=== PATIENT | male | born 1940 | race Caucasian/White ===

== ENCOUNTER 2020-04-04 13:20 | Observation (INO) | payer MEDICARE, OTHER ==
--- NOTE | 2020-04-04 13:41 | EDM.PDOC ---
ED HPI GENERAL MEDICAL PROBLEM - General Stated Complaint: FELL, SEVERE PAIN UNDER RIBS, TROUBLE BREATHING Time Seen by Provider: 04/04/20 13:25 Source of Information: Reports: Patient History Limitations: Reports: No Limitations - History of Present Illness INITIAL COMMENTS - FREE TEXT/NARRATIVE: This 79 yo male patient reports to the ED with left rib pain and left upper abdominal pain. The patient reports he missed a step in his home today causing him to fall onto his left side. The patient denies any loss of consciousness before, during or after the fall. The patient reports he did loose his breath during the incident. The patient reports increased pain with any movement. The patient reports the area of pain is in the left lower ribs, but worse in his left upper abdomen. Onset: Today Duration: Hour(s):, Constant Location: Reports: Chest, Abdomen Quality: Reports: Ache, Sharp, Stabbing Severity: Moderate Improves with: Reports: None Worsens with: Reports: None Context: Reports: Other Associated Symptoms: Reports: No Other Symptoms Left Anterior Chest Pain Score (Numeric/FACES): 9 - Related Data Allergies Allergy/AdvReac Type Severity Reaction Status Date / Time No Known Allergies Allergy Verified 04/04/20 13:42 Home Meds: Home Meds Aspirin 325 mg PO DAILY 04/04/20 [History] Labetalol HCl [Labetalol] 150 mg PO BID 04/04/20 [History] Losartan [Cozaar] 100 mg PO DAILY 04/04/20 [History] NIFEdipine [Nifedipine ER] 60 mg PO DAILY 04/04/20 [History] Omeprazole 20 mg PO DAILY 04/04/20 [History] Tamsulosin HCl 0.4 mg PO DAILY 04/04/20 [History] Review of Systems - Review of Systems Review Of Systems: Comprehensive ROS is negative, except as noted in HPI. ED EXAM, GENERAL - Physical Exam Exam: See Below Exam Limited By: No Limitations General Appearance: Alert, WD/WN, Moderate Distress Eye Exam: Bilateral Eye: EOMI, Normal Inspection, PERRL Ears: Normal External Exam, Normal Canal, Hearing Grossly Normal, Normal TMs Nose: Normal Inspection, Normal Mucosa, No Blood Throat/Mouth: Normal Inspection, Normal Lips, Normal Teeth, Normal Gums, Normal Oropharynx, Normal Voice, No Airway Compromise Head: Atraumatic, Normocephalic Neck: Normal Inspection, Supple, Non-Tender, Full Range of Motion Respiratory/Chest: No Respiratory Distress, No Accessory Muscle Use, Decreased Breath Sounds, Other (left lower chest wall tenderness) Cardiovascular: Normal Peripheral Pulses, Regular Rate, Rhythm, No Edema, No Gallop, No JVD, No Murmur, No Rub GI/Abdominal: Normal Bowel Sounds, No Organomegaly, No Distention, No Abnormal Bruit, No Mass, Pelvis Stable, Tender (left upper abdominal tenderness to palpation) (Male) Exam: Deferred Rectal (Males) Exam: Deferred Back Exam: Normal Inspection, Full Range of Motion, NT Extremities: Normal Inspection, Non-Tender, No Pedal Edema, Normal Capillary Refill, Limited Range of Motion (due to left rib, and left upper abdominal pain) Neurological: Alert, Oriented, CN II-XII Intact, Normal Cognition, Normal Gait, Normal Reflexes, No Motor/Sensory Deficits Psychiatric: Normal Affect, Normal Mood Skin Exam: Warm, Dry, Intact, Normal Color, No Rash Lymphatic: No Adenopathy Course - Vital Signs Last Recorded V/S: Last Vital Signs Temp 36.6 C 04/04/20 13:39 Pulse 94 04/04/20 13:39 Resp 16 04/04/20 13:39 BP 160/92 H 04/04/20 13:39 Pulse Ox 95 04/04/20 13:39 - Orders/Labs/Meds Orders: Active Orders 24 hr Category Date Time Status CORONAVIRUS COVID-19 CAT [[facility]] Urgent Lab 04/04/20 15:27 Ordered Labs: Laboratory Tests 04/04/20 04/04/20 Range/Units 13:41 13:41 WBC 15.1 H (5.0-10.0) 10^3/uL RBC 5.11 (4.6-6.2) 10^6/uL Hgb 15.4 (14.0-18.0) g/dL Hct 45.1 (40.0-54.0) % MCV 88.3 (80-100) fL MCH 30.1 (27.0-34.0) pg MCHC 34.1 (33.0-35.0) g/dL Plt Count 198 (150-450) 10^3/uL Neut % (Auto) 82.0 H (42.2-75.2) % Lymph % (Auto) 10.1 L (20.5-50.1) % [place] % (Auto) 6.9 (2-8) % Eos % (Auto) 0.9 L (1.0-3.0) % Baso % (Auto) 0.1 (0.0-1.0) % Sodium 133 L (136-145) mmol/L Potassium 4.5 (3.5-5.1) mmol/L Chloride 98 (98-107) mmol/L Carbon Dioxide 24 (21-32) mmol/L Anion Gap 15.5 H (7-13) mEq/L BUN 29 H (7-18) mg/dL Creatinine 2.07 H (0.70-1.30) mg/dL Est Cr Clr Drug Dosing 31.24 mL/min Estimated GFR (MDRD) 31 BUN/Creatinine Ratio 14.0 (No establ ref range) Glucose 128 H (74-99) mg/dL Calcium 8.9 (8.5-10.1) mg/dL Total Bilirubin 0.5 (0.2-1.0) mg/dL AST 23 (15-37) U/L ALT 21 (16-63) U/L Alkaline Phosphatase 106 (46-116) U/L Total Protein 7.5 (6.4-8.2) g/dL Albumin 3.6 (3.4-5.0) g/dL Globulin 3.9 Albumin/Globulin Ratio 0.9 Meds: Medications Discontinued Medications Generic Name Dose Route Start Last Admin Trade Name Freq PRN Reason Stop Dose Admin Morphine Sulfate 2 mg 04/04/20 13:49 04/04/20 13:54 Morphine IVPUSH 04/04/20 13:50 2 mg ONETIME ONE Administration Departure - Departure Time of Disposition: 15:29 Disposition: Refer to Observation Condition: Fair Clinical Impression: Fall from ground level Closed traumatic nondisplaced fracture of multiple ribs of left side Qualifiers: Encounter type: initial encounter Qualified Code(s): S22.42XA - Multiple fractures of ribs, left side, initial encounter for closed fracture - Discharge Information *PRESCRIPTION DRUG MONITORING PROGRAM REVIEWED*: Not Applicable *COPY OF PRESCRIPTION DRUG MONITORING REPORT IN PATIENT TSERING: Not Applicable Care Plan Goals: Discussed the patient's history, examination and x-ray results with Dr. Nayak during the visit. Dr. Nayak accepted the patient for continued evaluation and management as an observation patient at [facility] in [place]. Sepsis Event Note (ED) - Focused Exam Vital Signs: Vital Signs Temp Pulse Resp BP Pulse Ox 04/04/20 13:39 36.6 C 94 16 160/92 H 95 - My Orders Last 24 Hours: My Active Orders 04/04/20 15:27 CORONAVIRUS COVID-19 CAT [[facility]] Urgent - Assessment/Plan Last 24 Hours: My Active Orders 04/04/20 15:27 CORONAVIRUS COVID-19 CAT [[facility]] Urgent
[2020-04-04] MEDS ORDERED: Morphine 2 MG/ML SYRINGE IVPUSH ONE (13:49)
[2020-04-04 14:05] LABS: ANION GAP 15.5 mEq/L (7-13)
--- NOTE | 2020-04-04 15:08 | CT ---
EXAMINATION: Chest Abdomen Pelvis wo Cont SEX: Male AGE: 79 years CLINICAL HISTORY: 79-year-old hypertensive male smoker injured in ground-level FALL. Scan technique: Emergency volume acquisition of data from unenhanced CT scan chest, abdomen and pelvis obtained with patient lying supine on the Siemens multislice scanner [place], [place]. All data archived in the PACS system for storage, reformatting axial/sagittal/coronal planes and study (bone, lung, mediastinal and soft tissue windows). Interpretation: 1. Osteopenia. No sign of acute rib, spine, pelvic or other skeletal fracture. 2. Subtle peripheral interstitial lung densities involving the right upper and lower lobes that were present 2014 exam may represent chronic aspiration i.e, signs of reactive airway disease and old pleural parenchymal scarring right apex. Hiatus hernia. Right renal cyst.. 3. Small nodular lesion posteriorly right lung apex was present on CT chest 13 July 2013 i.e. unchanged. 4. No suspicious new parenchymal lung nodule or mass lesion. No significant new hilar/mediastinal lymphadenopathy. No malignant effusions. 5. No cystic or bullous emphysematous lesions. No air trapping. No pneumothorax or pneumomediastinum. 6. Gallbladder, unenhanced liver, spleen, pancreas, and adrenal glands unremarkable. Large hiatus hernia. 7. Solitary, 2-cm diameter peripelvic cyst right kidney. No urolithiasis or signs of obstructive uropathy. Midline prostate mass with central calcifications. 8. No abdominal or pelvic mass lesion. No ascites or retroperitoneal hematoma. No inflammatory "dirty" peritoneal fat, signs of mechanical bowel obstruction, or free intraperitoneal air. Normal caliber aorta. CONCLUSION: Chronic bronchiectasis and signs of COPD. Osteopenia. No sign of acute skeletal fracture, new primary/metastatic malignancy (since 2013), heart failure or pneumonia. No abdominal mass. Hiatus hernia. Right renal cyst.
[2020-04-04] MEDS ORDERED: Docusate Sodium 100 MG Cap PO PRN (16:03)
[2020-04-04] MEDS ORDERED: Ondansetron 4 MG Tab.DIS PO PRN (16:03)
[2020-04-04] MEDS ORDERED: Albuterol/Ipratropium 3.0-0.5 MG/3 ML Neb Soln NEB PRN (16:03)
[2020-04-04] MEDS: Sodium Chloride 0.9% 1,000 ML IV SCH (16:52)
[2020-04-04] MEDS: Morphine 2 MG/ML SYRINGE IVPUSH PRN (16:55)
[2020-04-04] MEDS: Nicotine 21 MG/24 Hr Patch TRDERM SCH (17:19)
[2020-04-04] MEDS: LORazepam 1 MG Tab PO PRN ×2 (17:19→22:43)
[2020-04-04] MEDS ORDERED: NIFEDIPINE 60 MG PO SCH (21:00)
[2020-04-04] MEDS: Acetaminophen 325 MG Tab PO PRN (21:27)
--- NOTE | 2020-04-04 21:56 | HP ---
CHIEF COMPLAINT: History of fall and severe rib cage pain. HISTORY OF PRESENT ILLNESS: The patient is an 79-year-old male who was admitted through the emergency room because apparently the patient missed a step in his home today causing him to fall into his left side and after he had the fall, he complained of significant pain on the left rib cage and left upper abdominal area, and the patient reported that he lost his breath during the incident, but the patient denies any loss of consciousness before and after the fall. The patient denies any other injury or trauma except for the significant pain on the left torso with certain movements. Because of the above, the patient had a workup in the emergency room and it showed multiple rib fracture on the left side. The patient was then admitted for further observation and management. PAST MEDICAL HISTORY: Remarkable for tobacco habituation, hypertension, COPD, BPH. FAMILY HISTORY: Noncontributory. SOCIAL HISTORY: The patient smokes cigarettes on a regular basis, but no alcohol abuse. REVIEW OF SYSTEMS: As in HPI. The rest of the review of systems is negative. HOME MEDICATIONS: Aspirin 325 mg daily, labetalol 150 mg b.i.d., losartan 100 mg daily, nifedipine ER 60 mg daily, omeprazole 20 mg daily, and tamsulosin 0.4 mg daily. ALLERGIES: No known drug allergies. PHYSICAL EXAMINATION: General: The patient is alert and oriented, in moderate distress from the left rib cage pain. Vital Signs: Blood pressure is 160/92, pulse of 94, respirations of 16, temperature of 36.6, and saturation is 95% on room air. SHEENT: Normocephalic. No signs of trauma. No C-spine tenderness. Neck: Supple. No JVD, no lymphadenopathy. Heart: Regular rate and rhythm. Normal S1 and S2. No gallops. No rubs. Lungs: Equal bilaterally with diminished breath sounds on both bases and no significant wheezing or crackles. Chest Wall: Remarkable for reproducible tenderness on the left chest wall area. Abdomen: Soft, nontender. Bowel sounds positive. Extremities: Negative for any gross deformities. No calf tenderness. No pedal edema. Neurologic: Negative for any lateralizing signs. LABORATORY DATA: CBC: WBC is 15.1, hemoglobin is 15.4, hematocrit is 45.1, platelets 198. Comp panel: Sodium is 133, BUN is 29, creatinine is 2.07, glucose is 128. The rest of the panel unremarkable. CAT scan of the abdomen and pelvis is remarkable for chronic bronchiectasis and COPD, and no abdominal masses. There are several nondisplaced posterior and lateral left rib fractures, T6, T7, T9 on the left hemithorax. ADMITTING DIAGNOSES: 1. Intractable left rib cage pain secondary to multiple rib fractures on the left hemithorax. 2. History of fall. 3. Chronic obstructive pulmonary disease. 4. Tobacco habituation. 5. Hypertension. 6. Benign prostatic hypertrophy. TREATMENT PLAN: The patient is going to be admitted to observation, General Medicine floor. He will be given pain medication as needed and he will be resumed on his home medication. He will also be on incentive spirometry and Lovenox for DVT prophylaxis. The rest of the management as necessary. [facility] /[id number]
[2020-04-04] MEDS: LABETALOL 300 MG PO SCH (21:58)
[2020-04-04] MEDS: Acetaminophen/HYDROcodone 325-10 MG Tab PO PRN (22:44)
[2020-04-05] MEDS: Morphine 2 MG/ML SYRINGE IVPUSH PRN ×6 (02:13→23:31)
[2020-04-05] MEDS: Sodium Chloride 0.9% 1,000 ML IV SCH (06:16)
[2020-04-05] MEDS: Acetaminophen/HYDROcodone 325-10 MG Tab PO PRN ×3 (06:39→20:54)
[2020-04-05 06:40] LABS: ANION GAP 14.4 mEq/L (7-13)
[2020-04-05] MEDS ORDERED: NIFEdipine 30 MG Tab.ER PO SCH ×2 (09:00→21:00)
[2020-04-05] MEDS ORDERED: OMEPRAZOLE 20 MG PO SCH ×2 (09:00→09:30)
[2020-04-05] MEDS ORDERED: Tamsulosin 0.4 MG Cap.ER PO SCH (09:00)
[2020-04-05] MEDS ORDERED: Enoxaparin 30 MG/0.3 ML Syringe SUBCUT SCH (09:00)
[2020-04-05] MEDS ORDERED: Losartan 50 MG Tab PO SCH (09:00)
[2020-04-05] MEDS ORDERED: Aspirin 325 MG Tab PO SCH (09:00)
[2020-04-05] MEDS ORDERED: Labetalol 100 MG Tab ONE (09:12)
[2020-04-05] MEDS: Nicotine 21 MG/24 Hr Patch TRDERM SCH (09:19)
[2020-04-05] MEDS ORDERED: LABETALOL 300 MG PO SCH (09:29)
[2020-04-05] MEDS ORDERED: NIFEDIPINE 60 MG PO SCH (09:30)
[2020-04-05] MEDS ORDERED: Omeprazole 20 MG Cap.CR PO SCH (09:30)
[2020-04-05] MEDS: Labetalol 100 MG Tab PO SCH ×2 (09:41→20:41)
[2020-04-05] MEDS: Docusate Sodium 100 MG Cap PO SCH ×2 (09:47→20:42)
[2020-04-05] MEDS: LABETALOL 300 MG PO SCH (09:49)
--- NOTE | 2020-04-05 10:07 | PN ---
DATE: 04/05/2020 SUBJECTIVE: The patient is an 79-year-old male who was admitted because of multiple rib fracture on the left hemithorax after a fall at home. The patient is still complaining of significant pain, especially with coughing spells, but otherwise he is slowly improving and he is hungry. He denies any fever or chills, headache, nor any other complaints. LABORATORY DATA: Lab workup this morning. WBC is 15.6, hemoglobin is 15.5, hematocrit 45, platelet is 183. Chem-6: Sodium is 132, BUN is 37, glucose is 151. OBJECTIVE: Vital Signs: Blood pressure is 139/73, pulse is 96, respirations 24, temperature of 99.3, saturation is 91% on 1 L per nasal cannula. Heart: Regular rate and rhythm. No gallops. No rubs. Lungs: Diminished breath sounds on both bases, but no significant wheezing or crackles. Abdomen: Soft, nontender. Bowel sounds positive. Extremities: Negative for any significant pedal edema. No calf tenderness. MEDICATIONS: Reviewed. PLAN: We will continue with his present management and continue with incentive spirometry and deep vein thrombosis prophylaxis, and continue with the pain management. He is also going to be seen by PT and OT. [facility] /[id number] DANIELLA
[2020-04-05] MEDS ORDERED: Albuterol/Ipratropium 3.0-0.5 MG/3 ML Neb Soln NEB SCH (11:00)
[2020-04-05] MEDS: Albuterol/Ipratropium 3.0-0.5 MG/3 ML Neb Soln NEB SCH ×2 (15:02→22:30)
[2020-04-05] MEDS: Benzonatate 100 MG Cap PO PRN (18:38)
[2020-04-05] MEDS: LORazepam 1 MG Tab PO PRN (20:42)
[2020-04-05] MEDS ORDERED: Sodium Chloride 0.9% 10 ML Syringe FLUSH PRN (23:31)
[2020-04-06] MEDS: Acetaminophen/HYDROcodone 325-10 MG Tab PO PRN (02:56)
[2020-04-06] MEDS: LORazepam 1 MG Tab PO PRN (02:56)
[2020-04-06] MEDS: Benzonatate 100 MG Cap PO PRN (02:57)
[2020-04-06] MEDS: Acetaminophen 325 MG Tab PO PRN (04:32)
[2020-04-06] MEDS: Morphine 2 MG/ML SYRINGE IVPUSH PRN (04:38)
[2020-04-06] MEDS: Albuterol/Ipratropium 3.0-0.5 MG/3 ML Neb Soln NEB SCH (05:40)
[2020-04-06 06:19] LABS: BASE EXCESS ARTERIAL -8 mmol/L ((-2)-(+3)); BICARBONATE,ARTERIAL 16.8 mmol/L (22-26); O2 DELIVERY DEVICE OM; O2 SATURATION ARTERIAL 92 % (95-100); PCO2 ARTERIAL 33 mmHg (35-45); PO2 ARTERIAL 69 mmHg (70-100)
[2020-04-06 06:21] LABS: ALLEN TEST PERFORMED
[2020-04-06 06:38] LABS: ANION GAP 16.9 mEq/L (7-13)
[2020-04-06] MEDS ORDERED: cefTRIAXone 1 GM in Sodium Chloride 0.9% 50 ML IV ONE (06:46)
--- NOTE | 2020-04-06 06:50 | CR ---
PROCEDURE INFORMATION: Exam: XR Chest, 1 View Exam date and time: 04/06/2020 6:18 AM Age: 79 years old Clinical indication: Other: Hypoxia TECHNIQUE: Imaging protocol: XR of the chest Views: 1 view. COMPARISON: CT Chest Abdomen Pelvis wo Cont 04/04/2020 2:17 PM FINDINGS: Lungs: Mild left basilar and right mid lung infiltrate with developing consolidation/subsegmental atelectasis. Pleural space: Unremarkable. No pleural effusion. No pneumothorax. Heart/Mediastinum: Unremarkable. No cardiomegaly. Vasculature: Broadening of the upper mediastinum may reflect oblique apical lordotic positioning.. Appears to be ectatic with vascular calcifications. Bones/joints: Unremarkable. IMPRESSION: Mild left basilar and right mid lung infiltrate with developing consolidation/subsegmental atelectasis.
--- NOTE | 2020-04-06 07:24 | PN ---
DATE: 04/06/2020 SUBJECTIVE: The patient is an 79-year-old male with past medical history of COPD, hypertension, and BPH. The patient was admitted with multiple rib fractures on the left hemithorax for pain management, and this morning the patient started deteriorating with respiratory rate in the 40s and saturation was declining too and requiring about 8 L per nasal cannula. The patient is more confused. ABG done this morning; pH is 7.33, PO2 of 69, pCO2 of 33, bicarb of 16.8. WBC is 18.1. Chest x-ray; my reading is remarkable for mild left pleural effusion and some infiltrate. OBJECTIVE: Vital Signs: Blood pressure is 165/86, pulse of 105, respiration of 32, temperature of 100.4, saturation is 92% on 2.5 L. General: The patient is lethargic and tachypneic. Heart: Tachycardic, but regular. Lungs: Diminished breath sounds on both bases, but no significant wheezing. Abdomen: Soft, nontender. Extremities: Negative for any pedal edema. No calf tenderness. IMPRESSION: Impending respiratory failure and possible development of pneumonia. I have discussed with the patient's daughter about possibility of transfer as the patient is a full code. She is agreeable to this, and I was able to talk to Dr. Lund, hospitalist in [facility] in [place], and he is willing to accept the patient in transfer. CONDITION ON TRANSFER: Stable. [facility] /[id number]
--- NOTE | 2020-04-06 08:00 | DISCH ---
FINAL DIAGNOSES: 1. Respiratory failure. 2. Systemic inflammatory response syndrome. 3. Pneumonia. 4. Chronic obstructive pulmonary disease. 5. Hypertension. 6. Benign prostatic hypertrophy. BRIEF HISTORY OF PRESENT ILLNESS: The patient is an 79-year-old male with past medical history of COPD, BPH, and hypertension, who was admitted through the emergency room because of multiple rib fractures on the left hemithorax after a fall from missing a step in his house and he was admitted for pain management. HOSPITAL COURSE: The patient was admitted to General Medicine floor observation and he was given pain medication for the rib fracture. He was given IV morphine because of the significant pain. Was also given Ativan for the agitation and anxiety. PT and OT were also consulted. The patient was doing fairly well until early this morning when he started declining with increasing respiratory rate and the patient being more confused and oxygen was desaturating. A chest x- ray was done which showed some development of mild left pleural effusion as well as the left lower lobe infiltrate. ABG; pH is 7.33, pCO2 of 33, PO2 of 69, bicarb of 16.8. WBC is 18.1, hemoglobin is 14.1, hematocrit is 42.2, platelets 163. Because of the above and impending respiratory failure, the patient was then transferred to [facility] for further evaluation and management, and the patient's daughter, Kady Pacheco was notified about this and she is agreeable with the plan. Dr. Lund, hospitalist is [facility] in [place] accepted the patient in transfer. The patient was also given Rocephin 1 g IV en route to [facility]. [facility] /[id number]
== END 2020-04-06 07:28 ==
LOC: DL.ED 13:20 → DL.MS 15:34
PROVIDERS: ADMIT Internal Medicine; ATTEND Internal Medicine
DX: S22.42XA Multiple fractures of ribs, left side, initial encounter for closed fracture (principal); J96.90 Respiratory failure, unspecified, unspecified whether with hypoxia or hypercapnia; I10 Essential (primary) hypertension; J44.9 Chronic obstructive pulmonary disease, unspecified; N40.0 Benign prostatic hyperplasia without lower urinary tract symptoms; F17.210 Nicotine dependence, cigarettes, uncomplicated; W10.9XXA Fall (on) (from) unspecified stairs and steps, initial encounter; Y92.009 Unspecified place in unspecified non-institutional (private) residence as the place of occurrence of the external cause; Z20.822 Contact with and (suspected) exposure to COVID-19
CPT/HCPCS: 36415; 36600; 71045; 71250; 74176; 80048; 80053; 81003; 82803; 85025; 87086; 87088; 87186; 94010; 94640; 96372; 96374; 96376; 97162-GP; 97166-GO; 99283; 99284-25; A9270-GY; G0378; J1650; J2270; J7030; J7620-GY; U0002

== ENCOUNTER 2020-07-30 16:45 | Emergency (ER) | payer MEDICARE, OTHER ==
[2020-07-30] MEDS ORDERED: Sodium Chloride 0.9% 1,000 ML IV ONE (17:30)
[2020-07-30 17:43] LABS: ANION GAP 18.7 mEq/L (7-13); CHLORIDE,CL 108 mmol/L (98-107); SODIUM,NA 142 mmol/L (136-145)
--- NOTE | 2020-07-30 18:34 | CR ---
PROCEDURE INFORMATION: Exam: XR Chest Exam date and time: 07/30/2020 6:09 PM Age: 80 years old Clinical indication: Shortness of breath; Additional info: Short of breath TECHNIQUE: Imaging protocol: XR of the chest. Views: 1 view. Total images: 1 COMPARISON: CR Chest 1V Frontal 04/06/2020 6:18 AM FINDINGS: Lungs: Unremarkable. No consolidation. Pleural spaces: Unremarkable. No pleural effusion. No pneumothorax. Heart/Mediastinum: Mild cardiomegaly. Vasculature: Tortuous thoracic aorta. Bones/joints: Unremarkable. IMPRESSION: No acute cardiopulmonary disease.
--- NOTE | 2020-07-30 18:39 | EDM.PDOC ---
Scribed by Kate Fuchs 07/30/20 1786 for Octaviano Obrien PA ED HPI GENERAL MEDICAL PROBLEM - General Chief Complaint: Respiratory Problem Stated Complaint: BY AMBULANCE Time Seen by Provider: 07/30/20 17:25 Source of Information: Reports: Patient, EMS, RN, RN Notes Reviewed History Limitations: Reports: No Limitations - History of Present Illness INITIAL COMMENTS - FREE TEXT/NARRATIVE: This 80 yo male patient was brought to the ED by [facility] due to being found outside on the ground unable to get up. The patient reports he was changing the oil on his lawnmower when his right leg gave out on him. The patient reports he sat down on the ground, but did not have enough strength in his legs to get back up off the ground. The patient reports he had been working outside today, but had not been working too hard. The patient denies any additional shortness of breath or chest pain. The patient denies any current pain or problems. Onset: Today Duration: Constant Location: Reports: Generalized Quality: Reports: Other Severity: Moderate Improves with: Reports: None Worsens with: Reports: None Context: Reports: Other Associated Symptoms: Reports: No Other Symptoms - Related Data Allergies Allergy/AdvReac Type Severity Reaction Status Date / Time No Known Allergies Allergy Verified 07/30/20 15:26 Home Meds: Home Meds NIFEdipine [Nifedipine ER] 30 mg PO BEDTIME 04/04/20 [History] Omeprazole 40 mg PO DAILY 04/04/20 [History] Albuterol Sulfate [Albuterol Sulfate HFA] 2 puff INH Q6H PRN 07/30/20 [History] Aspirin [Aspirin EC] 81 mg PO DAILY 07/30/20 [History] Budesonide/Formoterol Fumarate [Symbicort 160-4.5 Mcg Inhaler] 2 puff INH BID 07/30/20 [History] Bumetanide 1 mg PO DAILY 07/30/20 [History] Docusate Sodium/Sennosides [Senna Plus] 1 - 2 tab PO BID PRN 07/30/20 [History] Labetalol HCl [Labetalol] 100 mg PO BID 07/30/20 [History] Past Medical History HEENT History: Reports: Cataract Cardiovascular History: Reports: Hypertension Respiratory History: Reports: COPD Gastrointestinal History: Reports: GERD Genitourinary History: Reports: BPH Neurological History: Reports: Brain Injury, CVA Endocrine/Metabolic History: Reports: Other (See Below) Other Endocrine/Metabolic History: Diet controlled diabetes Oncologic (Cancer) History: Reports: Prostate - Past Surgical History HEENT Surgical History: Reports: Cataract Surgery, Tonsillectomy Cardiovascular Surgical History: Reports: Carotid Endarterectomy GI Surgical History: Reports: None Male Surgical History: Reports: Other (See Below) Other Male Surgeries/Procedures: Urethra dilation Endocrine Surgical History: Reports: None Neurological Surgical History: Reports: None Oncologic Surgical History: Reports: None Social & Family History - Caffeine Use Caffeine Use: Reports: Coffee, Soda ED ROS GENERAL - Review of Systems Review Of Systems: Comprehensive ROS is negative, except as noted in HPI. ED EXAM, GENERAL - Physical Exam Exam: See Below Exam Limited By: No Limitations General Appearance: Alert, WD/WN, Mild Distress Eye Exam: Bilateral Eye: EOMI, Normal Inspection, PERRL Ears: Normal External Exam, Normal Canal, Hearing Grossly Normal, Normal TMs Nose: Normal Inspection, Normal Mucosa, No Blood Throat/Mouth: Normal Lips, Normal Teeth, Normal Gums, Normal Oropharynx, Normal Voice, No Airway Compromise, Other (dry) Head: Atraumatic, Normocephalic Neck: Normal Inspection, Supple, Non-Tender, Full Range of Motion Respiratory/Chest: No Respiratory Distress, Lungs Clear, Normal Breath Sounds, No Accessory Muscle Use, Chest Non-Tender Cardiovascular: Tachycardia GI/Abdominal: Normal Bowel Sounds, Soft, Non-Tender, No Organomegaly, No Distention, No Abnormal Bruit, No Mass (Male) Exam: Deferred Rectal (Males) Exam: Deferred Back Exam: Normal Inspection, Full Range of Motion, NT Extremities: Normal Inspection, Normal Range of Motion, Non-Tender, Normal Capillary Refill, No Pedal Edema Neurological: Alert, Oriented, CN II-XII Intact, Normal Cognition, Normal Gait, Normal Reflexes, No Motor/Sensory Deficits Psychiatric: Normal Affect, Normal Mood Skin Exam: Warm, Dry, Intact, Normal Color, No Rash Lymphatic: No Adenopathy #1 Interpretation EKG Date: 07/30/20 Time: 17:06 Rhythm: Other (Sinus Tachycardia) [place]: Normal P-Wave: Present QRS: Normal ST-T: Normal QT: Normal Comparison: Change From Previous EKG (increased rate) Course - Vital Signs Last Recorded V/S: Last Vital Signs Temp 37.1 C 07/30/20 17:01 Pulse 124 H 07/30/20 17:01 Resp 18 07/30/20 17:01 BP 142/69 H 07/30/20 17:01 Pulse Ox 99 07/30/20 17:01 - Orders/Labs/Meds Orders: Active Orders 24 hr Category Date Time Status EKG Documentation Completion [RC] STAT Care 07/30/20 17:10 Active Labs: Laboratory Tests 07/30/20 07/30/20 Range/Units 17:17 17:17 WBC 13.6 H (5.0-10.0) 10^3/uL RBC 4.63 (4.6-6.2) 10^6/uL Hgb 14.1 (14.0-18.0) g/dL Hct 42.2 (40.0-54.0) % MCV 91.1 (80-100) fL MCH 30.5 (27.0-34.0) pg MCHC 33.4 (33.0-35.0) g/dL Plt Count 216 (150-450) 10^3/uL Neut % (Auto) 80.7 H (42.2-75.2) % Lymph % (Auto) 9.7 L (20.5-50.1) % [place] % (Auto) 7.8 (2-8) % Eos % (Auto) 1.4 (1.0-3.0) % Baso % (Auto) 0.4 (0.0-1.0) % Sodium 142 D (136-145) mmol/L Potassium 4.7 (3.5-5.1) mmol/L Chloride 108 H (98-107) mmol/L Carbon Dioxide 20 L (21-32) mmol/L Anion Gap 18.7 H (7-13) mEq/L BUN 43 H (7-18) mg/dL Creatinine 2.40 H (0.70-1.30) mg/dL Est Cr Clr Drug Dosing 24.92 mL/min Estimated GFR (MDRD) 26 BUN/Creatinine Ratio 17.9 (No establ ref range) Glucose 209 H (70-99) mg/dL Calcium 8.4 L (8.5-10.1) mg/dL Total Bilirubin 0.4 (0.2-1.0) mg/dL AST 25 (15-37) U/L ALT 41 (16-63) U/L Alkaline Phosphatase 98 (46-116) U/L Troponin I < 0.017 (0.000-0.056) ng/mL Total Protein 7.0 (6.4-8.2) g/dL Albumin 3.4 (3.4-5.0) g/dL Globulin 3.6 Albumin/Globulin Ratio 0.9 Meds: Medications Discontinued Medications Generic Name Dose Route Start Last Admin Trade Name Shalini PRN Reason Stop Dose Admin Sodium Chloride 1,000 mls @ 999 mls/hr 07/30/20 17:30 07/30/20 17:30 Normal Saline IV 07/30/20 18:30 999 mls/hr .BOLUS ONE Administration Departure - Departure Time of Disposition: 18:36 Disposition: Home, Self-Care 01 Condition: Fair Clinical Impression: Heat exhaustion Qualifiers: Encounter type: initial encounter Qualified Code(s): T67.5XXA - Heat exhaustion, unspecified, initial encounter - Discharge Information *PRESCRIPTION DRUG MONITORING PROGRAM REVIEWED*: Not Applicable *COPY OF PRESCRIPTION DRUG MONITORING REPORT IN PATIENT TSERING: Not Applicable Instructions: Heat Exhaustion Forms: ED Department Discharge Care Plan Goals: The patient and family were advised of the examination, EKG, lab and x-ray results during the visit. The patient was given a liter of IV fluids during the visit. The patient was encouraged to increase his oral fluid intake during warm days. If the patient has any additional symptoms or concerns, the patient should either return to the emergency department or visit his primary care facility. Sepsis Event Note (ED) - Focused Exam Vital Signs: Vital Signs Temp Pulse Resp BP Pulse Ox 07/30/20 17:01 37.1 C 124 H 18 142/69 H 99 - My Orders Last 24 Hours: My Active Orders 07/30/20 17:10 EKG Documentation Completion [RC] STAT - Assessment/Plan Last 24 Hours: My Active Orders 07/30/20 17:10 EKG Documentation Completion [RC] STAT I have read and agree with the documentation that has been completed regarding this visit. By signing this record, I attest that the documentation was completed in my physical presence and is an accurate record of the encounter.
== END 2020-07-30 18:50 | disposition home or self-care (01) ==
LOC: DL.ED 16:45
DX: T67.5XXA Heat exhaustion, unspecified, initial encounter (principal); I10 Essential (primary) hypertension; J44.9 Chronic obstructive pulmonary disease, unspecified; K21.9 Gastro-esophageal reflux disease without esophagitis; Z86.73 Personal history of transient ischemic attack (TIA), and cerebral infarction without residual deficits; Z79.899 Other long term (current) drug therapy
CPT/HCPCS: 36415; 71045; 80053; 84484; 85025; 93005; 93010; 99283; 99285-25; J7030

== ENCOUNTER 2020-09-04 11:29 | Emergency (ER) | payer MEDICARE, OTHER ==
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
[2020-09-04] MEDS ORDERED: ALTEPLASE IV STA (13:12)
[2020-09-04] MEDS ORDERED: INFUSION IV STA (13:12)
[2020-09-04 14:00] LABS: ANION GAP 17.8 mEq/L (7-13); CHLORIDE,CL 103 mmol/L (98-107)
== END 2020-09-04 13:51 ==
LOC: DL.ED 11:29
DX: I63.9 Cerebral infarction, unspecified (principal); I10 Essential (primary) hypertension; J44.9 Chronic obstructive pulmonary disease, unspecified; K21.9 Gastro-esophageal reflux disease without esophagitis; Z79.82 Long term (current) use of aspirin; Z79.899 Other long term (current) drug therapy; Z86.73 Personal history of transient ischemic attack (TIA), and cerebral infarction without residual deficits
CPT/HCPCS: 36415; 70450; 80053; 80307; 82947; 83605; 84484; 85025; 93005; 93010; 99285; 99285-25

== ENCOUNTER 2020-11-03 15:55 | Emergency (ER) | payer MEDICARE, OTHER ==
[2020-11-03] MEDS ORDERED: Acetaminophen/Codeine 300-30 MG Tab PO ONE (15:56)
[2020-11-03] MEDS ORDERED: Sodium Chloride 0.9% 1,000 ML IV ONE (16:32)
--- NOTE | 2020-11-03 16:44 | EDM.PDOC ---
<Ignacio Trujillo Fred - Last Filed: 11/03/20 16:36> ED HPI GENERAL MEDICAL PROBLEM - General Chief Complaint: Back Pain or Injury Stated Complaint: FELL HURT HIS BACK Time Seen by Provider: 11/03/20 16:36 Source of Information: Reports: Patient, Family History Limitations: Reports: No Limitations - History of Present Illness INITIAL COMMENTS - FREE TEXT/NARRATIVE: 80 y/o M c/o midline low back pn after he fell this morning. Pt got up this morning and his legs buckled. Pt does not know why he fell or why he is weak. The pain is constant 3/10 non radiating, no change with movement. Hx of prostate cancer and has a catheter with a leg bag. Also states he gets winded easily. He was brought to the ER by his daughter this afternoon to get checked out. Denies fever, cough, chills, drugs, etoh, cp, abd pn, pelvic pn, extremity pn. Onset: Today, Sudden Duration: Hour(s): Location: Reports: Back Severity: Mild Improves with: Reports: None Worsens with: Reports: None low back Pain Score (Numeric/FACES): 6 - Related Data Allergies Allergy/AdvReac Type Severity Reaction Status Date / Time No Known Allergies Allergy Verified 11/03/20 16:20 Home Meds: Home Meds Omeprazole 40 mg PO DAILY 04/04/20 [History] Albuterol Sulfate [Albuterol Sulfate HFA] 2 puff INH Q6H PRN 07/30/20 [History] Aspirin [Aspirin EC] 81 mg PO DAILY 07/30/20 [History] Budesonide/Formoterol Fumarate [Symbicort 160-4.5 Mcg Inhaler] 2 puff INH BID 07/30/20 [History] Bumetanide 1 mg PO DAILY 07/30/20 [History] Docusate Sodium/Sennosides [Senna Plus] 1 - 2 tab PO BID PRN 07/30/20 [History] Labetalol HCl [Labetalol] 100 mg PO BID 07/30/20 [History] Acetaminophen/Codeine [Tylenol with Codeine No.3 300MG/30MG] 1 tab PO Q4H PRN #12 tab 11/03/20 [Rx] Ascorbic Acid [Vitamin C] 250 mg PO TID 11/03/20 [History] Lactulose 15 ml PO BID 11/03/20 [History] Multivitamin 1 each PO DAILY 11/03/20 [History] Ticagrelor [Brilinta] 90 mg PO BID 11/03/20 [History] Tiotropium [Spiriva] 18 mcg INH BID 11/03/20 [History] amLODIPine Besylate [Amlodipine Besylate] 10 mg PO DAILY 11/03/20 [History] atorvaSTATin [Lipitor] 40 mg PO BEDTIME 11/03/20 [History] cephALEXin [Keflex] 500 mg PO QID #28 cap 11/03/20 [Rx] Past Medical History HEENT History: Reports: Cataract Cardiovascular History: Reports: Hypertension Respiratory History: Reports: COPD Gastrointestinal History: Reports: GERD Genitourinary History: Reports: BPH Musculoskeletal History: Reports: None Neurological History: Reports: Brain Injury, CVA Psychiatric History: Reports: None Endocrine/Metabolic History: Reports: Other (See Below) Other Endocrine/Metabolic History: Diet controlled diabetes Hematologic History: Reports: None Immunologic History: Reports: None Oncologic (Cancer) History: Reports: Prostate Dermatologic History: Reports: None - Infectious Disease History Infectious Disease History: Reports: None - Past Surgical History HEENT Surgical History: Reports: Cataract Surgery, Tonsillectomy Cardiovascular Surgical History: Reports: Carotid Endarterectomy GI Surgical History: Reports: None Male Surgical History: Reports: Other (See Below) Other Male Surgeries/Procedures: Urethra dilation Endocrine Surgical History: Reports: None Neurological Surgical History: Reports: None Oncologic Surgical History: Reports: None Social & Family History - Family History Family Medical History: No Pertinent Family History - Tobacco Use Tobacco Use Status *Q: Former Tobacco User Used Tobacco, but Quit: Yes Month/Year Tobacco Last Used: Mar 2020 - Caffeine Use Caffeine Use: Reports: Coffee - Recreational Drug Use Recreational Drug Use: No ED ROS GENERAL - Review of Systems Review Of Systems: Comprehensive ROS is negative, except as noted in HPI. ED EXAM,LOWER BACK PAIN/INJURY - Physical Exam Exam: See Below Exam Limited By: No Limitations General Appearance: Alert, Other (breathes heavily with minimal movement) Throat/Mouth: Normal Inspection, Normal Lips, Normal Teeth, Normal Gums, Normal Oropharynx, Normal Voice, No Airway Compromise Head: Atraumatic, Normocephalic Neck: Normal Inspection, Supple, Non-Tender, Full Range of Motion Respiratory/Chest: Other (diminshed throuhout) Cardiovascular: Normal Peripheral Pulses GI/Abdominal: Soft, Non-Tender (Male) Exam: Deferred Rectal (Males) Exam: Deferred Back Exam: Full Range of Motion, Other (diffuse tenderness bilaterally at L5. No point tenderness) Extremities: Normal Inspection, Normal Range of Motion, Non-Tender, No Pedal Edema, Normal Capillary Refill Neurological: Alert, Normal Mood/Affect, Normal Dorsiflexion, Normal Plantar Flexion, Normal Gait, Normal Reflexes Departure - Departure Disposition: Home, Self-Care 01 Clinical Impression: Compression fracture of T12 vertebra Qualifiers: Encounter type: initial encounter Qualified Code(s): S22.080A - Wedge compression fracture of T11-T12 vertebra, initial encounter for closed fracture Chronic renal insufficiency Qualifiers: Chronic kidney disease stage: unspecified stage Qualified Code(s): N18.9 - Ch ronic kidney disease, unspecified Leukocytosis Qualifiers: Leukocytosis type: other Qualified Code(s): D72.828 - Other elevated white blood cell count UTI (urinary tract infection) Qualifiers: Urinary tract infection type: site unspecified Hematuria presence: without hematuria Qualified Code(s): N39.0 - Urinary tract infection, site not specified - Discharge Information Prescriptions: cephALEXin [Keflex] 500 mg PO QID #28 cap Acetaminophen/Codeine [Tylenol with Codeine No.3 300MG/30MG] 1 tab PO Q4H PRN #12 tab PRN Reason: Pain Instructions: Urinary Tract Infection, Adult, [id number], Leukocytosis, Pain Medicine Instructions, [id number] Forms: ED Department Discharge Additional Instructions: Home, rest, heating pad 20 minutes at a time 3-4 times daily, avoid bending at the waist, no lifting greater than 10 pounds for 1 week, call your PCP in 2 days for follow-up appointment regarding the T12 compression fracture, return to the emergency department for any worsening condition Sepsis Event Note (ED) - Evaluation Sepsis Screening Result: No Definite Risk <Octaviano Obrien - Last Filed: 11/03/20 17:49> #1 Interpretation EKG Date: 11/03/20 Time: 16:44 Rhythm: Other (First degree heartblock) [place]: Normal P-Wave: Present QRS: Normal ST-T: Normal QT: Normal IA/PQ Interval: lengthened Course - Radiology Interpretation Free Text/Narrative:: [facility] [place] [facility] Final Radiology Report Call: [phone] assistance Online chat: [email or web address] Name: KESHAWN LARES Age: 80Years M Date: 11/03/2020 SSN: -- : [id number] Study: CR CHEST 1V FRONTAL Requesting Physician: Octaviano Obrien Images: 1 Addl Studies: Provided Clinical History: short of breath Contrast: Contrast Medium: Contrast Amount: Contrast Method: CONFIDENTIALITY STATEMENT This report is intended only for use by the referring physician, and only in ac cordance with law. If you received this in error, call [phone]. Page 1 of 1 PROCEDURE INFORMATION: Exam: XR Chest Exam date and time: 11/03/2020 5:17 PM Age: 80 years old Clinical indication: Shortness of breath; Additional info: Short of breath TECHNIQUE: Imaging protocol: XR of the chest. Views: 1 view. COMPARISON: CR Chest 1V Frontal 07/30/2020 6:09 PM FINDINGS: Lungs: Lung volumes are normal. No focal consolidation. Pleural spaces: Unremarkable. No pleural effusion. No pneumothorax. Heart/Mediastinum: No evidence of cardiomegaly. Prominent epicardial fat pad. Mildly tortuous, atherosclerotic thoracic aorta. Bones/joints: No evidence of acute fracture. Old right clavicle deformity. IMPRESSION: No radiographically apparent acute abnormality in the chest. No significant change from prior. Thank you for allowing us to participate in the care of your patient. Dictated and Authenticated by: Josiah Pierce MD 11/03/2020 5:48 PM Central Time ([place] & [place]) <Elan Murdock - Last Filed: 11/03/20 20:47> Course - Vital Signs Text/Narrative:: Care was assumed at change of shift, the patient is an unfortunate 80-year-old male who had an episode of weakness this morning and fell onto his buttocks and has a acute T12 compression fracture, the patient also has leukocytosis and elevated BUN and elevated creatinine, the patient has a chronic leukocytosis, he has a chronic renal insufficiency his creatinine is at baseline, the patient has a UTI, the patient has been treated with Rocephin here his lactic acid is 1.1 he does not meet septic criteria, the patient reports his pain is in control at this time, he will be discharged home to follow-up outpatient with PCP or to return the emergency department for any worsening condition he will be covered with analgesics at home There is no pharmacy open this evening, the patient will be discharged home with Tylenol 3 for pain Last Recorded V/S: Last Vital Signs Temp 97.3 F 11/03/20 16:15 Pulse 102 H 11/03/20 16:15 Resp 20 11/03/20 16:15 BP 158/86 H 11/03/20 16:15 Pulse Ox 93 L 11/03/20 16:15 - Orders/Labs/Meds Orders: Active Orders 24 hr Category Date Time Status CULTURE BLOOD [BC] Stat Lab 11/03/20 19:10 Received CULTURE URINE [RM] Urgent Lab 11/03/20 17:25 Received Labs: Laboratory Tests 11/03/20 11/03/20 11/03/20 Range/Units 16:35 16:35 17:25 WBC 18.5 H (5.0-10.0) 10^3/uL RBC 4.70 (4.6-6.2) 10^6/uL Hgb 14.1 (14.0-18.0) g/dL Hct 42.2 (40.0-54.0) % MCV 89.8 (80-100) fL MCH 30.0 (27.0-34.0) pg MCHC 33.4 (33.0-35.0) g/dL Plt Count 258 (150-450) 10^3/uL Neut % (Auto) 82.4 H (42.2-75.2) % Lymph % (Auto) 9.6 L (20.5-50.1) % Burt % (Auto) 7.6 (2-8) % Eos % (Auto) 0.3 L (1.0-3.0) % Baso % (Auto) 0.1 (0.0-1.0) % Sodium 136 (136-145) mmol/L Potassium 4.4 (3.5-5.1) mmol/L Chloride 101 (98-107) mmol/L Carbon Dioxide 22 (21-32) mmol/L Anion Gap 17.4 H (7-13) mEq/L BUN 31 H (7-18) mg/dL Creatinine 2.13 H (0.70-1.30) mg/dL Est Cr Clr Drug Dosing 29.04 mL/min Estimated GFR (MDRD) 30 BUN/Creatinine Ratio 14.6 (No establ ref range) Glucose 172 H (70-99) mg/dL Lactic Acid (0.4-2.0) mmol/L Calcium 8.9 (8.5-10.1) mg/dL Magnesium 2.0 (1.8-2.4) mg/dL Total Bilirubin 0.7 (0.2-1.0) mg/dL AST 25 (15-37) U/L ALT 36 (16-63) U/L Alkaline Phosphatase 118 H (46-116) U/L Troponin I High Sens 21 (<=76) pg/mL Total Protein 7.2 (6.4-8.2) g/dL Albumin 3.5 (3.4-5.0) g/dL Globulin 3.7 Albumin/Globulin Ratio 0.9 Urine Color Yellow (YELLOW) Urine Appearance Turbid (CLEAR) Urine pH 6.0 (5.0-9.0) Ur Specific [place] 1.025 (1.005-1.030) Urine Protein 100 H (NEGATIVE) Urine Glucose (UA) 100 H (NEGATIVE) Urine Ketones Negative (NEGATIVE) Urine Occult Blood Small H (NEGATIVE) Urine Nitrite Positive H (NEGATIVE) Urine Bilirubin Negative (NEGATIVE) Urine Urobilinogen 0.2 (0.2-1.0) mg/dL Ur Leukocyte Esterase Small H (NEGATIVE) Urine RBC 20-30 H (0-5) /HPF Urine WBC >100 H (0-5/HPF) /HPF Ur Epithelial Cells Few (NOT SEEN) /HPF Amorphous Sediment Many (NOT SEEN) /HPF Urine Bacteria Many H (0-FEW/HPF) /HPF Urine Mucus Moderate H (NOT SEEN) /LPF 11/03/20 Range/Units 19:10 WBC (5.0-10.0) 10^3/uL RBC (4.6-6.2) 10^6/uL Hgb (14.0-18.0) g/dL Hct (40.0-54.0) % MCV (80-100) fL MCH (27.0-34.0) pg MCHC (33.0-35.0) g/dL Plt Count (150-450) 10^3/uL Neut % (Auto) (42.2-75.2) % Lymph % (Auto) (20.5-50.1) % Burt % (Auto) (2-8) % Eos % (Auto) (1.0-3.0) % Baso % (Auto) (0.0-1.0) % Sodium (136-145) mmol/L Potassium (3.5-5.1) mmol/L Chloride (98-107) mmol/L Carbon Dioxide (21-32) mmol/L Anion Gap (7-13) mEq/L BUN (7-18) mg/dL Creatinine (0.70-1.30) mg/dL Est Cr Clr Drug Dosing mL/min Estimated GFR (MDRD) BUN/Creatinine Ratio (No establ ref range) Glucose (70-99) mg/dL Lactic Acid 1.1 (0.4-2.0) mmol/L Calcium (8.5-10.1) mg/dL Magnesium (1.8-2.4) mg/dL Total Bilirubin (0.2-1.0) mg/dL AST (15-37) U/L ALT (16-63) U/L Alkaline Phosphatase (46-116) U/L Troponin I High Sens (<=76) pg/mL Total Protein (6.4-8.2) g/dL Albumin (3.4-5.0) g/dL Globulin Albumin/Globulin Ratio Urine Color (YELLOW) Urine Appearance (CLEAR) Urine pH (5.0-9.0) Ur Specific [place] (1.005-1.030) Urine Protein (NEGATIVE) Urine Glucose (UA) (NEGATIVE) Urine Ketones (NEGATIVE) Urine Occult Blood (NEGATIVE) Urine Nitrite (NEGATIVE) Urine Bilirubin (NEGATIVE) Urine Urobilinogen (0.2-1.0) mg/dL Ur Leukocyte Esterase (NEGATIVE) Urine RBC (0-5) /HPF Urine WBC (0-5/HPF) /HPF Ur Epithelial Cells (NOT SEEN) /HPF Amorphous Sediment (NOT SEEN) /HPF Urine Bacteria (0-FEW/HPF) /HPF Urine Mucus (NOT SEEN) /LPF Meds: Medications Discontinued Medications Generic Name Dose Route Start Last Admin Trade Name Shalini PRN Reason Stop Dose Admin Sodium Chloride 1,000 mls @ 250 mls/hr 11/03/20 16:32 11/03/20 17:15 Normal Saline IV 11/03/20 20:31 250 mls/hr .BOLUS ONE Administration Ceftriaxone Sodium 1 gm/ 50 mls @ 100 mls/hr 11/03/20 18:01 11/03/20 18:26 Sodium Chloride IV 11/03/20 18:30 100 mls/hr ONETIME ONE Administration Morphine Sulfate 2 mg 11/03/20 17:55 11/03/20 18:00 Morphine 2 Mg/Ml Syringe IVPUSH 11/03/20 17:56 2 mg ONETIME ONE Administration Departure - Departure Time of Disposition: 20:21 Condition: Fair - Discharge Information *PRESCRIPTION DRUG MONITORING PROGRAM REVIEWED*: Yes *COPY OF PRESCRIPTION DRUG MONITORING REPORT IN PATIENT TSERING: No Sepsis Event Note (ED) - Focused Exam Vital Signs: Vital Signs Temp Pulse Resp BP Pulse Ox 11/03/20 16:15 97.3 F 102 H 20 158/86 H 93 L
[2020-11-03 17:02] LABS: ANION GAP 17.4 mEq/L (7-13)
--- NOTE | 2020-11-03 17:49 | CR ---
PROCEDURE INFORMATION: Exam: XR Chest Exam date and time: 11/03/2020 5:17 PM Age: 80 years old Clinical indication: Shortness of breath; Additional info: Short of breath TECHNIQUE: Imaging protocol: XR of the chest. Views: 1 view. COMPARISON: CR Chest 1V Frontal 07/30/2020 6:09 PM FINDINGS: Lungs: Lung volumes are normal. No focal consolidation. Pleural spaces: Unremarkable. No pleural effusion. No pneumothorax. Heart/Mediastinum: No evidence of cardiomegaly. Prominent epicardial fat pad. Mildly tortuous, atherosclerotic thoracic aorta. Bones/joints: No evidence of acute fracture. Old right clavicle deformity. IMPRESSION: No radiographically apparent acute abnormality in the chest. No significant change from prior.
[2020-11-03] MEDS ORDERED: Morphine 2 MG/ML SYRINGE IVPUSH ONE (17:55)
[2020-11-03] MEDS ORDERED: cefTRIAXone 1 GM in Sodium Chloride 0.9% 50 ML IV ONE (18:01)
--- NOTE | 2020-11-03 18:37 | CT ---
PROCEDURE INFORMATION: Exam: CT Lumbar Spine Without Contrast Exam date and time: 11/03/2020 6:08 PM Age: 80 years old Clinical indication: Other: Pain; Additional info: Low back pain with hematuria TECHNIQUE: Imaging protocol: Computed tomography images of the lumbar spine without contrast. Radiation optimization: All CT scans at this facility use at least one of these dose optimization techniques: automated exposure control; mA and/or kV adjustment per patient size (includes targeted exams where dose is matched to clinical indication); or iterative reconstruction. COMPARISON: CT Chest Abdomen Pelvis wo Cont 04/04/2020 2:17 PM FINDINGS: Vertebrae: Compression fracture of the T12 vertebral body, with 25-50% loss of height, is new from prior and appears acute. No other acute fracture. Lumbar vertebral body heights are maintained. There is diffuse osteopenia. Discs/Spinal canal/Neural foramina: No significant spinal canal or neural foraminal stenosis. Moderate to severe decreased disc height at L5-S1; remaining disc spaces are preserved. Mediastinum: At least moderate sized hiatal hernia is partially imaged. Kidneys and ureters: Simple right renal cyst. Vasculature: Moderate aortic atherosclerosis. The infrarenal abdominal aorta measures up to 2.9 cm diameter. Soft tissues: Unremarkable. IMPRESSION: 1. Compression fracture of the T12 vertebral body with 25-50% loss of height, appears acute. No retropulsed fragment. 2. No other evidence of acute abnormality. 3. Abdominal aortic aneurysm measuring 2.9 cm. Follow-up imaging in 5 years is recommended. COMMENTS: Consistent with the [employer]'s Incidental Findings Committee white paper (J Am Jaiden Radiol 2018): Any incidental renal lesion less than 1 cm or classified as too small to characterize, or any incidental cystic renal lesion characterized as simple-appearing, is likely benign. No follow-up imaging is recommended for these lesions per consensus recommendations based on imaging criteria.
--- NOTE | 2020-11-03 18:46 | CT ---
PROCEDURE INFORMATION: Exam: CT Abdomen And Pelvis Without Contrast Exam date and time: 11/03/2020 6:08 PM Age: 80 years old Clinical indication: Other: Pain; Additional info: Low back pain with hematuria TECHNIQUE: Imaging protocol: Computed tomography of the abdomen and pelvis without contrast. Radiation optimization: All CT scans at this facility use at least one of these dose optimization techniques: automated exposure control; mA and/or kV adjustment per patient size (includes targeted exams where dose is matched to clinical indication); or iterative reconstruction. COMPARISON: CT Chest Abdomen Pelvis wo Cont 04/04/2020 2:17 PM FINDINGS: Lungs: At least moderate emphysema. No consolidation. Minimal dependent atelectasis versus scarring. No pleural effusion. Mild bronchiectasis. Heart: Upper normal heart size. No pericardial effusion. Mediastinal space: Moderate sized hiatal hernia. Liver: Unremarkable non-contrast appearance of the liver. Gallbladder and bile ducts: The gallbladder is normal. There is no evidence of biliary ductal dilation. Pancreas: There is diffuse atrophy of the pancreatic parenchyma. The pancreas is otherwise unremarkable. Spleen: The spleen is normal. Adrenal glands: The right adrenal gland is normal. 1.6 cm benign left adrenal adenoma. Kidneys and ureters: There are multiple simple right renal cysts. Additionally, there are indeterminate focal hypodensities in the right kidney that cannot be further characterized on the current examination but likely also represent simple cysts. The right kidney is otherwise unremarkable. There is a focal left renal hypodensity that cannot be further characterized on the current examination but likely represents a simple cyst. The left kidney is otherwise unremarkable. Stomach and bowel: There is no evidence of bowel obstruction or intestinal perforation. Mild diverticulosis. Appendix: Normal appendix. Intraperitoneal space: No pneumoperitoneum. No abnormal free fluid or fluid collection. Vasculature: The aorta demonstrates moderate atherosclerotic calcification. Infrarenal abdominal aortic aneurysm measuring 2.9 cm in maximum diameter. Lymph nodes: There is no evidence of lymphadenopathy. Urinary bladder: The urinary bladder is decompressed by a Brunner catheter. Reproductive: Unremarkable as visualized. Bones/joints: There is diffuse osteopenia. Multiple subacute/chronic left rib fractures. T12 vertebral body fracture better demonstrated on concurrent dedicated CT lumbar spine. No other evidence of acute fracture. Soft tissues: The extra-abdominal soft tissues are unremarkable. IMPRESSION: 1. No evidence of acute abnormality in the abdomen or pelvis. 2. Chronic and incidental findings as above. COMMENTS: 1. Consistent with the [employer]'s Incidental Findings Committee white paper (J Am Jaiden Radiol 2017): For any incidental adrenal lesion greater than 1 cm but less than 4 cm classified in this report as benign, likely benign, or containing fat (including classification as an adenoma or myelolipoma), no follow-up imaging is recommended per consensus recommendations based on imaging criteria. Further lab evaluation could be pursued if warranted based on clinical findings. 2. Consistent with the [employer]'s Incidental Findings Committee white paper (J Am Jaiden Radiol 2018): Any incidental renal lesion less than 1 cm or classified as too small to characterize, or any incidental cystic renal lesion characterized as simple-appearing, is likely benign. No follow-up imaging is recommended for these lesions per consensus recommendations based on imaging criteria.
[2020-11-03] MEDS ORDERED: Acetaminophen/Codeine 300-30 MG Tab ONE (20:50)
== END 2020-11-03 20:57 | disposition home or self-care (01) ==
LOC: DL.ED 15:55
DX: S22.080A Wedge compression fracture of T11-T12 vertebra, initial encounter for closed fracture (principal); I12.9 Hypertensive chronic kidney disease with stage 1 through stage 4 chronic kidney disease, or unspecified chronic kidney disease; N18.9 Chronic kidney disease, unspecified; D72.828 Other elevated white blood cell count; N39.0 Urinary tract infection, site not specified; K21.9 Gastro-esophageal reflux disease without esophagitis; E11.9 Type 2 diabetes mellitus without complications; Z79.899 Other long term (current) drug therapy; Z87.891 Personal history of nicotine dependence; Z79.82 Long term (current) use of aspirin; W01.0XXA Fall on same level from slipping, tripping and stumbling without subsequent striking against object, initial encounter
CPT/HCPCS: 36415; 71045; 72131; 74176; 80053; 81001; 83605; 83735; 84484; 85025; 87040; 87086; 87186; 93005; 96365; 96375; 99284; A9270; J0696; J2270; J7030

== ENCOUNTER 2020-11-08 17:51 | Observation (INO) | payer MEDICARE, OTHER ==
--- NOTE | 2020-11-08 18:34 | PCM.HP ---
H&P History of Present Illness - General Date of Service: 11/08/20 Admit Problem/Dx: shortness of breath - History of Present Illness Initial Comments - Free Text/Narative: 80-year-old gentleman who went to the clinic complaining of shortness of breath The patient was noted to have elevated d-dimer and was sent to hospital for further evaluation and treatment Patient has a history of acute stroke, chronic kidney disease, stage 3-4, BPH, COPD, hypertension Recently had cva with r. sided visual field loss, had fall with rib fx. He was recently evaluated for thoracic spine fracture related back pain he used to live independently then was in assisted living then in [place], now back in assisted living The patient is normally not on oxygen but does have COPD with use of Symbicort inhaler and albuterol, Spiriva The patient has a history of ischemic stroke, hypertension, chronic indwelling Warner catheter, prostate cancer the patient says this shortness of breath is not new. It has been present for weeks, probably months. the patient and his son is describing episodes of fairly sudden onset of feeling difficulty breathing when he starts to hyperventilate.these episodes last for a few minutes. The patient can control them and the episodes stop when he is breathing through his nose. no associated back pain. no chest pain. DId not try to use his inhalers during these episodes because of their short duration and "the inhaler is in the back of his room" denies leg edema. went for a scheduled clinic visit to evaluate the sob but the sob is not worse in the past few days, no cp, no acute symptoms denies cough, no fever - Related Data Allergies/Adverse Reactions: Allergies Allergy/AdvReac Type Severity Reaction Status Date / Time No Known Allergies Allergy Verified 11/03/20 16:20 Home Medications: Home Meds Omeprazole 40 mg PO DAILY 04/04/20 [History] Albuterol Sulfate [Albuterol Sulfate HFA] 2 puff INH Q6H PRN 07/30/20 [History] Aspirin [Aspirin EC] 81 mg PO DAILY 07/30/20 [History] Budesonide/Formoterol Fumarate [Symbicort 160-4.5 Mcg Inhaler] 2 puff INH BID 07/30/20 [History] Bumetanide 1 mg PO DAILY 07/30/20 [History] Docusate Sodium/Sennosides [Senna Plus] 1 - 2 tab PO BID PRN 07/30/20 [History] Labetalol HCl [Labetalol] 100 mg PO BID 07/30/20 [History] Acetaminophen/Codeine [Tylenol with Codeine No.3 300MG/30MG] 1 tab PO Q4H PRN #12 tab 11/03/20 [Rx] Ascorbic Acid [Vitamin C] 250 mg PO TID 11/03/20 [History] Lactulose 15 ml PO BID 11/03/20 [History] Multivitamin 1 each PO DAILY 11/03/20 [History] Ticagrelor [Brilinta] 90 mg PO BID 11/03/20 [History] Tiotropium [Spiriva] 18 mcg INH DAILY 11/03/20 [History] amLODIPine Besylate [Amlodipine Besylate] 10 mg PO DAILY 11/03/20 [History] cephALEXin [Keflex] 500 mg PO QID #28 cap 11/03/20 [Rx] Acetaminophen with Codeine [Acetaminophen-Cod #3] 1 each PO Q4H PRN 11/08/20 [History] atorvaSTATin Calcium [Atorvastatin Calcium] 80 mg PO BEDTIME 11/08/20 [History] Past Medical History HEENT History: Reports: Cataract Cardiovascular History: Reports: Hypertension Respiratory History: Reports: COPD Gastrointestinal History: Reports: GERD Genitourinary History: Reports: BPH Musculoskeletal History: Reports: None Neurological History: Reports: Brain Injury, CVA Psychiatric History: Reports: None Endocrine/Metabolic History: Reports: Other (See Below) Other Endocrine/Metabolic History: Diet controlled diabetes Hematologic History: Reports: None Immunologic History: Reports: None Oncologic (Cancer) History: Reports: Prostate Dermatologic History: Reports: None - Infectious Disease History Infectious Disease History: Reports: None - Past Surgical History HEENT Surgical History: Reports: Cataract Surgery, Tonsillectomy Cardiovascular Surgical History: Reports: Carotid Endarterectomy GI Surgical History: Reports: None Male Surgical History: Reports: Other (See Below) Other Male Surgeries/Procedures: Urethra dilation Endocrine Surgical History: Reports: None Neurological Surgical History: Reports: None Oncologic Surgical History: Reports: None Social & Family History - Family History Family Medical History: No Pertinent Family History - Caffeine Use Caffeine Use: Reports: Coffee H&P Review of Systems - Review of Systems: Review Of Systems: See Below General: Reports: Weakness (falls easily). Denies: Fever, Chills, Malaise Pulmonary: Reports: Shortness of Breath. Denies: Wheezing, Pleuritic Chest Pain, Cough, Sputum, Hemoptysis Cardiovascular: Denies: Chest Pain, Edema Gastrointestinal: Denies: Abdominal Pain Genitourinary: Reports: Other (chronic warner catheter) Musculoskeletal: Reports: Back Pain. Denies: Leg Pain, Joint Swelling Exam - Exam Exam: See Below - Vital Signs Vital Signs: Last Vital Signs Temp 97.5 F 11/08/20 18:13 Pulse 92 11/08/20 18:13 Resp 24 H 11/08/20 18:13 BP 131/71 11/08/20 18:13 Pulse Ox 97 11/08/20 18:13 Weight: 163 lb 4.8 oz - Exam Quality Assessment: No: Supplemental Oxygen General: Alert, Oriented HEENT: EOMI Neck: Supple Lungs: Clear to Auscultation, Normal Respiratory Effort. No: Crackles, Rales, Rhonchi, Stridor, Wheezing Cardiovascular: Regular Rate, Regular Rhythm GI/Abdominal Exam: Normal Bowel Sounds, Soft, Non-Tender Extremities: No Pedal Edema Neuro Extensive - Mental Status: Alert, Oriented x3 Psychiatric: Alert, Normal Affect, Normal Mood - Patient Data Lab Results Last 24 hrs: laboratory studies were reviewed from [facility] troponin less than 0.02 B UN 44, creatinine 2.4, this appears baseline it was 2.5 one month ago Sodium 142, potassium 4.4, bicarbonate 23.1 White blood cell count 13.5, this was 15.31 month ago Hemoglobin 13.0 Platelet count 261 Chest xr reading "no effusions, chronic lung markings" d-dimer elevated at 1920 BNP practically normal at 126 - Problem List (1) Cerebrovascular accident (CVA) SNOMED Code(s): 002964185 ICD Code: I63.9 - CEREBRAL INFARCTION, UNSPECIFIED Status: Acute Current Visit: No Qualifiers: CVA mechanism: unspecified Qualified Code(s): I63.9 - Cerebral infarction, unspecified (2) Chronic renal insufficiency SNOMED Code(s): 567499475 ICD Code: N18.9 - CHRONIC KIDNEY DISEASE, UNSPECIFIED Status: Acute Current Visit: No Qualifiers: Chronic kidney disease stage: unspecified stage Qualified Code(s): N18.9 - Chronic kidney disease, unspecified (3) Compression fracture of T12 vertebra SNOMED Code(s): 094619815, 632473029 ICD Code: S22.080A - WEDGE COMPRESSION FRACTURE OF T11-T12 VERTEBRA, INIT Status: Acute Current Visit: No Qualifiers: Encounter type: initial encounter Qualified Code(s): S22.080A - Wedge compression fracture of T11-T12 vertebra, initial encounter for closed fracture (4) Leukocytosis SNOMED Code(s): 311117020, 245061358 ICD Code: D72.829 - ELEVATED WHITE BLOOD CELL COUNT, UNSPECIFIED Status: Acute Current Visit: No Qualifiers: Leukocytosis type: other Qualified Code(s): D72.828 - Other elevated white blood cell count Problem List Initiated/Reviewed/Updated: Yes Orders Last 24hrs: Active Orders 24 hr Category Date Time Status Regular Diet [DIET] Diet 11/09/20 Breakfast Active CORONAVIRUS COVID-19 CAT [MOLEC] Routine Lab 11/08/20 18:11 Received Assessment/Plan Comment:: 80 yo with h/o recent cva, copd, chronic indwelling warner cath presented with chronic sob, with self limited episodes of dyspnea, tachypnea. 1. episodes of dyspnea, tachypnea no apparent acute pulmonary process - sats are good on RA, cxr negative, no wheezing, self limited episodes, not related to activity concern was possible pulmonary embolism - other than elevated ddimer which is very non specific no other signs - no leg edema, no acute change, self limited episodes, good sats - ct chest is high risk with CKD, suspicion is low - I will set up LE - I will not start empirical anticoagulation will monitor for signs of hypoxemia, cardiovascular unstability I will get CT chest w/o contrast will try to optimize COPD treatment - rec f/up with pulmonary while hospitalized instead of symbicort, albuterol inh will use Pulmicort, duoneb 2. leukocytosis will get UA, ucx 3. htn, cva treat with labetalol, nifedipine, norvasc cont asa, brilinta 4. ckd IV use bumex 5. dvt prophylaxis sq heparin 6. discussed code status with pt ands son, elected full code
[2020-11-08] MEDS ORDERED: Albuterol/Ipratropium 3.0-0.5 MG/3 ML Neb Soln NEB PRN (19:28)
[2020-11-08] MEDS ORDERED: Acetaminophen 325 MG Tab PO PRN (19:30)
[2020-11-08] MEDS ORDERED: Ondansetron 4 MG Tab.DIS PO PRN (19:30)
[2020-11-08] MEDS ORDERED: Sodium Chloride 0.9% 10 ML Syringe FLUSH PRN (19:30)
[2020-11-08] MEDS ORDERED: Temazepam 15 MG Cap PO PRN (19:30)
[2020-11-08] MEDS: Budesonide 0.5 MG/2 ML Neb Susp NEB SCH (20:19)
[2020-11-08] MEDS ORDERED: atorvaSTATin 20 MG Tab PO SCH (21:00)
[2020-11-08] MEDS: Heparin Sodium 5,000 Units/ML Vial SUBCUT SCH (21:19)
[2020-11-08] MEDS: Ascorbic Acid 500 MG Tab PO SCH (22:00)
[2020-11-08] MEDS: Labetalol 100 MG Tab PO SCH (22:01)
[2020-11-08] MEDS: Lactulose Soln 10 GM/15 ML 30 ML UD Cup PO SCH (22:01)
[2020-11-08] MEDS: Acetaminophen/Codeine 300-30 MG Tab PO PRN (22:02)
[2020-11-09] MEDS: Albuterol/Ipratropium 3.0-0.5 MG/3 ML Neb Soln NEB SCH ×2 (01:47→07:34)
[2020-11-09] MEDS: Heparin Sodium 5,000 Units/ML Vial SUBCUT SCH (05:03)
[2020-11-09] MEDS: Acetaminophen/Codeine 300-30 MG Tab PO PRN ×2 (05:19→13:01)
[2020-11-09] MEDS ORDERED: Omeprazole 20 MG Cap.CR PO SCH (06:00)
[2020-11-09 06:39] LABS: ANION GAP 14.9 mEq/L (7-13)
[2020-11-09] MEDS: Budesonide 0.5 MG/2 ML Neb Susp NEB SCH (07:34)
[2020-11-09] MEDS: Labetalol 100 MG Tab PO SCH (08:52)
[2020-11-09] MEDS: Ascorbic Acid 500 MG Tab PO SCH (08:52)
[2020-11-09] MEDS: Lactulose Soln 10 GM/15 ML 30 ML UD Cup PO SCH (08:55)
[2020-11-09] MEDS ORDERED: Tiotropium Inhaler 18 MCG Inhalation Powder Cap Kit of 5 INH SCH (09:00)
[2020-11-09] MEDS ORDERED: Multivitamin Tab PO SCH (09:00)
[2020-11-09] MEDS ORDERED: Aspirin 81 MG Tab.EC PO SCH (09:00)
[2020-11-09] MEDS ORDERED: amLODIPine 5 MG Tab PO SCH (09:00)
[2020-11-09] MEDS ORDERED: Lidocaine 5% 700 MG Patch TOP SCH (10:00)
[2020-11-09] MEDS ORDERED: Bumetanide 1 MG Tab PO SCH (10:30)
--- NOTE | 2020-11-09 11:52 | CT ---
PROCEDURE INFORMATION: Exam: CT Chest Without Contrast; Diagnostic Exam date and time: 11/09/2020 11:14 AM Age: 80 years old Clinical indication: Shortness of breath; Patient HX: Wbc 10.7; Additional info: SOB TECHNIQUE: Imaging protocol: Diagnostic computed tomography of the chest without contrast. Radiation optimization: All CT scans at this facility use at least one of these dose optimization techniques: automated exposure control; mA and/or kV adjustment per patient size (includes targeted exams where dose is matched to clinical indication); or iterative reconstruction. COMPARISON: CT lumbar spine 11/03/2020 CT abdomen pelvis 11/03/2020 CT Chest Abdomen Pelvis wo Cont 04/04/2020 2:17 PM FINDINGS: Limitations: None. Trachea: Normal. Bronchial tree: Normal. Lungs: Mild diffuse centrilobular pulmonary emphysema. Mild right lower lobe atelectasis. Pleural spaces: Normal. Heart: Normal. Coronary arteries: Mild multivessel calcification. Mediastinal space: Small to moderate hiatal hernia. Aorta: Mild diffuse aortosclerosis. Normal caliber aorta. Lymph nodes: No enlarged or otherwise suspicious lymph nodes. Kidneys and ureters: Simple/benign right renal cortical cysts measuring up to 2.8 cm. Bones/joints: Incompletely healed fractures left anterolateral 3rd through 10th ribs and posterior left 5th through 10th ribs. Worsened T12 compression fracture deformity resulting in 50% height loss and 5 mm posterior cortex displacement into the central canal. Soft tissues: Normal. IMPRESSION: 1. Worsened T12 compression fracture deformity and increased posterior cortex displacement and central canal stenosis. 2. Numerous chronic or subacute left-sided rib fractures. The left anterolateral fractures were present previously as was the posterior left 8th rib fracture. The 5th through 7th and 8 through 10th posterior rib fractures are new since March 2020 but not acute. 3. Mild diffuse pulmonary emphysema. No acute disease in the chest. 4. Incidentally noted findings include coronary artery calcification and hiatal hernia. Benign right renal cortical cysts may be ignored. COMMENTS: Consistent with the [employer]'s Incidental Findings Committee white paper (J Am Jaiden Radiol 2018): Any incidental renal lesion less than 1 cm or classified as too small to characterize, or any incidental cystic renal lesion characterized as simple-appearing, is likely benign. No follow-up imaging is recommended for these lesions per consensus recommendations based on imaging criteria.
--- NOTE | 2020-11-09 12:27 | PCM.DCSUM1 ---
Discharge Summary - Hospital Course Free Text/Narrative:: 80-year-old gentleman who went to the clinic complaining of shortness of breath The patient was noted to have elevated d-dimer and was sent to the hospital for further evaluation and treatment Patient has a history of acute stroke, chronic kidney disease, stage 3-4, BPH, COPD, hypertension Recently had cva with r. sided visual field loss, had fall with rib fx. He was recently evaluated for thoracic spine fracture related back pain he used to live independently then was in assisted living then in [place], now back in assisted living The patient is normally not on oxygen but does have COPD with use of Symbicort inhaler and albuterol, Spiriva The patient has a history of ischemic stroke, hypertension, chronic indwelling Warner catheter, prostate cancer multiple recent hospitalization the patient says this shortness of breath is not new. It has been present for weeks, probably months. Has episodes of fairly sudden onset of feeling difficulty breathing when he starts to hyperventilate. these episodes last for a 1-2 minutes. The patient can control them and the episodes stop when he is breathing through his nose slowly. no associated back pain. no chest pain.no wheezing noted denies leg edema. went for a scheduled clinic visit to evaluate the sob no cp, no other associated acute symptoms denies cough, no fever 80 yo with h/o recent cva, copd, chronic indwelling warner cath presented with chronic sob, with self limited episodes of dyspnea, tachypnea. 1. c/o episodes of dyspnea, tachypnea During the hospital stay the patient remained hemo-dynamically stable, had no desaturations Stable vital signs Had a few episodes of tachypnea which was self limited without significant change in oxygen saturation or blood pressure no apparent acute pulmonary process - sats are good on RA, cxr negative, no wheezing, self limited episodes, not related to activity CT chest w/o contrast: no acute oulmonary process concern was possible pulmonary embolism - other than elevated ddimer (which is very non specific) no other signs - no leg edema, no acute change, only self limited episodes of sob, good sats - ct chest is high risk with CKD, suspicion is low - I will set up LE US -to be done today in the clinic At this point I do not think that further acute care investigation is necessary I have called [facility] and sent for clinic for pulmonary medicine referral Reviewed recent pulmonary function test which showed changes of COPD without significant reversible component these episodes might relate to pain from recent fall with new posterior rib fx.s (07-20 and ugh ) elevated ddimer is likely due to t12 compression fx, rib fx.s 2. leukocytosis improved no fever With history of chronic Warner catheter UA showed multiple bacteria, wbc ucx: 11/03 e chol (sens to cipro, cephazolin), Ent faecalis (sens to cipro) will continue 5 days cipro 3. htn, cva treat with labetalol, nifedipine, norvasc cont asa, brilinta 4. ckd IV cont to use bumex 5. back pain t12 compression fx. posterior rib fx.s and 10-23 CT showed worsening changes from 11/03 but neurologically intact pain not well controlled with tylenol/codein #3 will add lidoderm patch add brace f/up with PMD - consider IR kyphoplasty if pain is not well controlled will have pt /ot f/up pt for pain control, strengthening re: T12 compression fx OT for ADL training CT chest w/o IMPRESSION: 1. Worsened T12 compression fracture deformity and increased posterior cortex displacement and central canal stenosis. 2. Numerous chronic or subacute left-sided rib fractures. The left anterolateral fractures were present previously as was the posterior left 8th rib fracture. The 5th through 7th and 8 through 10th posterior rib fractures are new since March 2020 but not acute. 3. Mild diffuse pulmonary emphysema. No acute disease in the chest. 4. Incidentally noted findings include coronary artery calcification and hiatal hernia. Benign right renal cortical cysts may be ignored. Diagnosis: Stroke: No - Discharge Data Discharge Date: 11/09/20 Discharge Disposition: Home, Self-Care 01 Condition: Good - Referral to Home Health Primary Care Physician: Marilu Peterson, BELLING MACHINE OPERATOR - Discharge Diagnosis/Problem(s) (1) Cerebrovascular accident (CVA) SNOMED Code(s): 294576972 ICD Code: I63.9 - CEREBRAL INFARCTION, UNSPECIFIED Status: Acute Current Visit: No Qualifiers: CVA mechanism: unspecified Qualified Code(s): I63.9 - Cerebral infarction, unspecified (2) Chronic renal insufficiency SNOMED Code(s): 086753948 ICD Code: N18.9 - CHRONIC KIDNEY DISEASE, UNSPECIFIED Status: Acute Current Visit: No Qualifiers: Chronic kidney disease stage: unspecified stage Qualified Code(s): N18.9 - Chronic kidney disease, unspecified (3) Compression fracture of T12 vertebra SNOMED Code(s): 197877697, 199760171 ICD Code: S22.080A - WEDGE COMPRESSION FRACTURE OF T11-T12 VERTEBRA, INIT Status: Acute Current Visit: No Qualifiers: Encounter type: initial encounter Qualified Code(s): S22.080A - Wedge compression fracture of T11-T12 vertebra, initial encounter for closed fracture (4) Leukocytosis SNOMED Code(s): 239504799, 941198642 ICD Code: D72.829 - ELEVATED WHITE BLOOD CELL COUNT, UNSPECIFIED Status: Acute Current Visit: No Qualifiers: Leukocytosis type: other Qualified Code(s): D72.828 - Other elevated white blood cell count - Patient Summary/Data Consults: Consultations 11/09/20 09:49 OT Evaluation and Treatment [CONS] Routine PT Evaluation and Treatment [CONS] Routine - Patient Instructions Diet: Heart Healthy Diet Activity: As Tolerated - Discharge Plan *PRESCRIPTION DRUG MONITORING PROGRAM REVIEWED*: Not Applicable *COPY OF PRESCRIPTION DRUG MONITORING REPORT IN PATIENT TSERING: Not Applicable Home Medications: Home Meds Omeprazole 40 mg PO ACBREAKFAST 04/04/20 [History] Albuterol Sulfate [Albuterol Sulfate HFA] 2 puff INH Q6H PRN 07/30/20 [History] Aspirin [Aspirin EC] 81 mg PO DAILY 07/30/20 [History] Budesonide/Formoterol Fumarate [Symbicort 160-4.5 Mcg Inhaler] 2 puff INH BID 07/30/20 [History] Bumetanide 1 mg PO .EVERYOTHERDAY 07/30/20 [History] Labetalol HCl [Labetalol] 100 mg PO BID 07/30/20 [History] Ascorbic Acid [Vitamin C] 250 mg PO TID 11/03/20 [History] Lactulose 15 ml PO BID 11/03/20 [History] Multivitamin 1 tab PO DAILY 11/03/20 [History] Ticagrelor [Brilinta] 90 mg PO BID 11/03/20 [History] Tiotropium [Spiriva] 18 mcg INH DAILY 11/03/20 [History] amLODIPine Besylate [Amlodipine Besylate] 10 mg PO DAILY 11/03/20 [History] cephALEXin [Keflex] 500 mg PO QID #28 cap 11/03/20 [Rx] Acetaminophen with Codeine [Acetaminophen-Cod #3] 1 tab PO Q4H PRN 11/08/20 [History] atorvaSTATin Calcium [Atorvastatin Calcium] 80 mg PO BEDTIME 11/08/20 [History] Oxygen Therapy Mode: Room Air Patient Handouts: Chronic Obstructive Pulmonary Disease, [id number], Spinal Compression Fracture, Rib Fracture, [id number] - Discharge Summary/Plan Comment DC Time >30 min.: Yes (contacting PMD, arranging f/up at [facility]) Total # of Minutes for Discharge Time: 45 - General Info Date of Service: 11/09/20 Functional Status: Reports: Tolerating Diet, Ambulating, Urinating - Review of Systems General: Denies: Fever Pulmonary: Reports: Shortness of Breath (periodic). Denies: Pleuritic Chest Pain Cardiovascular: Denies: Dyspnea on Exertion, Edema Gastrointestinal: Denies: Abdominal Pain Genitourinary: Denies: Dysuria Neurological: Denies: Confusion - Patient Data Vitals - Most Recent: Last Vital Signs Temp 98.4 F 11/09/20 08:00 Pulse 75 11/09/20 08:52 Resp 20 11/09/20 08:00 BP 134/67 11/09/20 08:53 Pulse Ox 97 11/09/20 08:00 Weight - Most Recent: 164 lb 6.4 oz I&O - Last 24 hours: Intake & Output 11/08/20 11/09/20 11/09/20 22:59 06:59 14:59 Intake Total 500 420 Output Total 200 300 Balance 300 -300 420 Lab Results - Last 24 hrs: Laboratory Results - last 24 hr 11/08/20 11/08/20 11/09/20 Range/Units 18:11 21:25 06:05 WBC 10.7 H (5.0-10.0) 10^3/uL RBC 4.11 L (4.6-6.2) 10^6/uL Hgb 12.4 L D (14.0-18.0) g/dL Hct 37.7 L (40.0-54.0) % MCV 91.7 (80-100) fL MCH 30.2 (27.0-34.0) pg MCHC 32.9 L (33.0-35.0) g/dL Plt Count 247 (150-450) 10^3/uL Sodium (136-145) mmol/L Potassium (3.5-5.1) mmol/L Chloride (98-107) mmol/L Carbon Dioxide (21-32) mmol/L Anion Gap (7-13) mEq/L BUN (7-18) mg/dL Creatinine (0.70-1.30) mg/dL Est Cr Clr Drug Dosing mL/min Estimated GFR (MDRD) Glucose (70-99) mg/dL Calcium (8.5-10.1) mg/dL Urine Color Yellow (YELLOW) Urine Appearance Cloudy (CLEAR) Urine pH 5.5 (5.0-9.0) Ur Specific [place] 1.025 (1.005-1.030) Urine Protein 30 H (NEGATIVE) Urine Glucose (UA) 500 H (NEGATIVE) Urine Ketones Negative (NEGATIVE) Urine Occult Blood Small H (NEGATIVE) Urine Nitrite Negative (NEGATIVE) Urine Bilirubin Negative (NEGATIVE) Urine Urobilinogen 0.2 (0.2-1.0) mg/dL Ur Leukocyte Esterase Small H (NEGATIVE) Urine RBC 50-75 H (0-5) /HPF Urine WBC Packed H (0-5/HPF) /HPF Ur Epithelial Cells Few (NOT SEEN) /HPF Amorphous Sediment Many (NOT SEEN) /HPF Urine Bacteria Many H (0-FEW/HPF) /HPF Urine Mucus Moderate H (NOT SEEN) /LPF SARS-CoV-2 RNA (CAT) Negative (NEGATIVE) 11/09/20 Range/Units 06:05 WBC (5.0-10.0) 10^3/uL RBC (4.6-6.2) 10^6/uL Hgb (14.0-18.0) g/dL Hct (40.0-54.0) % MCV (80-100) fL MCH (27.0-34.0) pg MCHC (33.0-35.0) g/dL Plt Count (150-450) 10^3/uL Sodium 141 (136-145) mmol/L Potassium 3.9 (3.5-5.1) mmol/L Chloride 107 (98-107) mmol/L Carbon Dioxide 23 (21-32) mmol/L Anion Gap 14.9 H (7-13) mEq/L BUN 38 H (7-18) mg/dL Creatinine 1.89 H (0.70-1.30) mg/dL Est Cr Clr Drug Dosing 32.33 mL/min Estimated GFR (MDRD) 34 Glucose 144 H (70-99) mg/dL Calcium 8.6 (8.5-10.1) mg/dL Urine Color (YELLOW) Urine Appearance (CLEAR) Urine pH (5.0-9.0) Ur Specific [place] (1.005-1.030) Urine Protein (NEGATIVE) Urine Glucose (UA) (NEGATIVE) Urine Ketones (NEGATIVE) Urine Occult Blood (NEGATIVE) Urine Nitrite (NEGATIVE) Urine Bilirubin (NEGATIVE) Urine Urobilinogen (0.2-1.0) mg/dL Ur Leukocyte Esterase (NEGATIVE) Urine RBC (0-5) /HPF Urine WBC (0-5/HPF) /HPF Ur Epithelial Cells (NOT SEEN) /HPF Amorphous Sediment (NOT SEEN) /HPF Urine Bacteria (0-FEW/HPF) /HPF Urine Mucus (NOT SEEN) /LPF SARS-CoV-2 RNA (CAT) (NEGATIVE) Med Orders - Current: Current Medications Acetaminophen (Acetaminophen 325 Mg Tab) 650 mg PO Q4H PRN PRN Reason: Pain (Mild 1-3)/fever Acetaminophen/Codeine Phosphate (Acetaminophen/Codeine 300-30 Mg Tab) 1 tab PO Q4H PRN PRN Reason: Pain (moderate 4-6) Last Admin: 11/09/20 05:19 Dose: 1 tab Documented by: Albuterol/Ipratropium (Albuterol/Ipratropium 3.0-0.5 Mg/3 Ml Neb Soln) 3 ml NEB Q2H PRN PRN Reason: Shortness of Breath Albuterol/Ipratropium (Albuterol/Ipratropium 3.0-0.5 Mg/3 Ml Neb Soln) 3 ml NEB Q6HRRT [facility] Last Admin: 11/09/20 07:34 Dose: 3 ml Documented by: Amlodipine Besylate (Amlodipine 5 Mg Tab) 10 mg PO DAILY [facility] Last Admin: 11/09/20 08:53 Dose: 10 mg Documented by: Ascorbic Acid (Ascorbic Acid 500 Mg Tab) 250 mg PO TID [facility] Last Admin: 11/09/20 08:52 Dose: 250 mg Documented by: Aspirin (Aspirin 81 Mg Tab.Ec) 81 mg PO DAILY [facility] Last Admin: 11/09/20 08:53 Dose: 81 mg Documented by: Atorvastatin Calcium (Atorvastatin 20 Mg Tab) 80 mg PO BEDTIME [facility] Last Admin: 11/08/20 22:00 Dose: 80 mg Documented by: Budesonide (Budesonide 0.5 Mg/2 Ml Neb Susp) 0.5 mg NEB BIDRT [facility] Last Admin: 11/09/20 07:34 Dose: 0.5 mg Documented by: Bumetanide (Bumetanide 1 Mg Tab) 1 mg PO Q48H [facility] Last Admin: 11/09/20 10:59 Dose: 1 mg Documented by: Heparin Sodium (Porcine) (Heparin Sodium 5,000 Units/Ml Vial) 5,000 units SUBCUT Q8HR [facility] Last Admin: 11/09/20 05:03 Dose: Not Given Documented by: Labetalol HCl (Labetalol 100 Mg Tab) 100 mg PO BID [facility] Last Admin: 11/09/20 08:52 Dose: 100 mg Documented by: Lactulose (Lactulose Soln 10 Gm/15 Ml 30 Ml Ud Cup) 10 gm PO BID [facility] Last Admin: 11/09/20 08:55 Dose: 10 gm Documented by: Lidocaine (Lidocaine 5% 700 Mg Patch) 700 mg TOP DAILY [facility] Last Admin: 11/09/20 10:37 Dose: 700 mg Documented by: Miscellaneous Information (Remove Lidocaine Patch) 1 ea TRDERM BEDTIME [facility] Multivitamins/Minerals/Vitamin C (Multivitamin Tab) 1 tab PO DAILY [facility] Last Admin: 11/09/20 08:52 Dose: 1 tab Documented by: Omeprazole (Omeprazole 20 Mg Cap.Cr) 40 mg PO ACBREAKFAST [facility] Last Admin: 11/09/20 05:18 Dose: 40 mg Documented by: Ondansetron HCl (Ondansetron 4 Mg Tab.Dis) 4 mg PO Q4H PRN PRN Reason: nausea, able to take PO Sodium Chloride (Sodium Chloride 0.9% 10 Ml Syringe) 10 ml FLUSH ASDIRECTED PRN PRN Reason: Keep Vein Open Temazepam (Temazepam 15 Mg Cap) 15 mg PO BEDTIME PRN PRN Reason: Sleep Ticagrelor (Ticagrelor 60 Mg Tab) 90 mg PO BID [facility] Last Admin: 11/09/20 08:53 Dose: 90 mg Documented by: Tiotropium [place] (Tiotropium Inhaler 18 Mcg Inhalation Powder Cap Kit Of 5) 18 mcg INH DAILY [facility] Last Admin: 11/09/20 08:56 Dose: 18 mcg Documented by: - Exam General: Reports: Alert, Oriented Neck: Reports: Supple Lungs: Reports: Normal Respiratory Effort, Decreased Breath Sounds Cardiovascular: Reports: Regular Rate, Regular Rhythm GI/Abdominal Exam: Normal Bowel Sounds, Soft, Non-Tender Back Exam: Reports: Vertebral Tenderness Extremities: No Pedal Edema Skin: Reports: Warm, Dry Neurological: Reports: No New Focal Deficit Psy/Mental Status: Reports: Alert, Normal Affect, Normal Mood
== END 2020-11-09 13:30 | disposition home or self-care (01) ==
LOC: DL.MS 17:51
PROVIDERS: ADMIT Internal Medicine; ATTEND Internal Medicine
DX: S22.42XD Multiple fractures of ribs, left side, subsequent encounter for fracture with routine healing (principal); S22.080A Wedge compression fracture of T11-T12 vertebra, initial encounter for closed fracture; J44.9 Chronic obstructive pulmonary disease, unspecified; I63.9 Cerebral infarction, unspecified; D72.829 Elevated white blood cell count, unspecified; R79.1 Abnormal coagulation profile; I12.9 Hypertensive chronic kidney disease with stage 1 through stage 4 chronic kidney disease, or unspecified chronic kidney disease; N18.4 Chronic kidney disease, stage 4 (severe); E11.9 Type 2 diabetes mellitus without complications; Z20.822 Contact with and (suspected) exposure to COVID-19; Z85.46 Personal history of malignant neoplasm of prostate; Z79.82 Long term (current) use of aspirin; Z79.899 Other long term (current) drug therapy; W19.XXXD Unspecified fall, subsequent encounter
CPT/HCPCS: 36415; 71250; 80048; 81001; 85027; 87086; 87088; 87186; 94640; 96372; 97165-GO; A9270-GY; G0378; J1644; J7620-GY; U0002

== ENCOUNTER 2020-12-09 05:36 | Emergency (ER) | payer MEDICARE, OTHER ==
--- NOTE | 2020-12-09 05:40 | EDM.PDOC ---
ED HPI GENERAL MEDICAL PROBLEM - General Stated Complaint: AMBULANCE Time Seen by Provider: 12/09/20 05:38 Source of Information: Reports: Patient, EMS, Old Records, RN, RN Notes Reviewed History Limitations: Reports: No Limitations - History of Present Illness INITIAL COMMENTS - FREE TEXT/NARRATIVE: Austin is an 80 y/o male who presents to the ED via [facility] with complaints of a Brunner catheter that is not draining. The patient states he is not certain why he is here, but was told to come to the emergency department by staff at his basic care facility. The patient denies fever, shaking chills, palpitations, nausea, vomiting, abdominal pain, suprapubic tenderness, hematuria, or diarrhea. [employer]ounder spoke with staff at [facility] who noted urine in his brief this morning with some leakage around the catheter; they are concerned the catheter is blocked. - Related Data Allergies Allergy/AdvReac Type Severity Reaction Status Date / Time No Known Allergies Allergy Verified 11/03/20 16:20 Home Meds: Home Meds Omeprazole 40 mg PO ACBREAKFAST 04/04/20 [History] Albuterol Sulfate [Albuterol Sulfate HFA] 2 puff INH Q6H PRN 07/30/20 [History] Aspirin [Aspirin EC] 81 mg PO DAILY 07/30/20 [History] Budesonide/Formoterol Fumarate [Symbicort 160-4.5 Mcg Inhaler] 2 puff INH BID 07/30/20 [History] Bumetanide 1 mg PO .EVERYOTHERDAY 07/30/20 [History] Labetalol HCl [Labetalol] 100 mg PO BID 07/30/20 [History] Ascorbic Acid [Vitamin C] 250 mg PO TID 11/03/20 [History] Lactulose 15 ml PO BID 11/03/20 [History] Multivitamin 1 tab PO DAILY 11/03/20 [History] Ticagrelor [Brilinta] 90 mg PO BID 11/03/20 [History] Tiotropium [Spiriva HandiHaler] 18 mcg INH DAILY 11/03/20 [History] amLODIPine Besylate [Amlodipine Besylate] 10 mg PO DAILY 11/03/20 [History] Acetaminophen with Codeine [Acetaminophen-Cod #3] 1 tab PO Q4H PRN 11/08/20 [History] atorvaSTATin Calcium [Atorvastatin Calcium] 80 mg PO BEDTIME 11/08/20 [History] Ciprofloxacin HCl [Cipro] 250 mg PO BID #10 tablet 11/09/20 [Rx] Lidocaine 5% [Lidoderm 5%] 700 mg TOP DAILY #12 patch 11/09/20 [Rx] Past Medical History HEENT History: Reports: Cataract Cardiovascular History: Reports: High Cholesterol, Hypertension, DE, SOB on Exertion Respiratory History: Reports: COPD, SOB Gastrointestinal History: Reports: GERD Genitourinary History: Reports: BPH, UTI, Recurrent Musculoskeletal History: Reports: None Neurological History: Reports: Brain Injury, CVA Psychiatric History: Reports: None Endocrine/Metabolic History: Reports: Diabetes, Type II, Other (See Below) Other Endocrine/Metabolic History: Diet controlled diabetes Hematologic History: Reports: None Immunologic History: Reports: None Oncologic (Cancer) History: Reports: Prostate Dermatologic History: Reports: None - Infectious Disease History Infectious Disease History: Reports: Chicken Pox, Measles, Mumps - Past Surgical History HEENT Surgical History: Reports: Cataract Surgery, Tonsillectomy Cardiovascular Surgical History: Reports: Carotid Endarterectomy GI Surgical History: Reports: None Male Surgical History: Reports: Other (See Below) Other Male Surgeries/Procedures: Urethra dilation Endocrine Surgical History: Reports: None Neurological Surgical History: Reports: None Oncologic Surgical History: Reports: None Social & Family History - Family History Family Medical History: No Pertinent Family History - Caffeine Use Caffeine Use: Reports: Coffee ED ROS GENERAL - Review of Systems Review Of Systems: Comprehensive ROS is negative, except as noted in HPI. ED EXAM, GENERAL - Physical Exam Exam: See Below Exam Limited By: No Limitations General Appearance: Alert, No Apparent Distress Eye Exam: Bilateral Eye: EOMI, Normal Inspection, PERRL (3mm) Ears: Normal External Exam, Hearing Grossly Normal Throat/Mouth: Normal Inspection, Normal Oropharynx, Normal Voice, No Airway Compromise Head: Atraumatic, Normocephalic Neck: Normal Inspection, Full Range of Motion Respiratory/Chest: No Respiratory Distress, Lungs Clear, Normal Breath Sounds, No Accessory Muscle Use, Chest Non-Tender Cardiovascular: Normal Peripheral Pulses, Regular Rate, Rhythm, No Gallop, No Murmur, No Rub GI/Abdominal: Normal Bowel Sounds, Soft, Non-Tender, No Distention, No Abnormal Bruit, No Mass, Pelvis Stable (Male) Exam: No Hernia, Other (Brunner catheter in place). No: Penile Lesions, Rash, Suprapubic Fullness Rectal (Males) Exam: Deferred Back Exam: Normal Inspection, Full Range of Motion Extremities: Normal Inspection, Normal Range of Motion Neurological: Alert, Oriented, CN II-XII Intact, Normal Cognition, Normal Gait, No Motor/Sensory Deficits Psychiatric: Normal Affect, Normal Mood Skin Exam: Warm, Dry, Intact, Normal Color, No Rash. No: Cyanosis, Jaundice, Mottled, Pallor Course - Vital Signs Last Recorded V/S: Last Vital Signs Temp 97.4 F 12/09/20 05:37 Pulse 87 12/09/20 05:37 Resp 20 12/09/20 05:37 BP 124/84 12/09/20 05:37 Pulse Ox 97 12/09/20 05:37 - Re-Assessments/Exams Free Text/Narrative Re-Assessment/Exam: 12/09/20 Bladder scanner volume = 0 Brunner catheter changed, as he is due for a change via [facility] staff. Red flag signs and symptoms which would warrant immediate reevaluation discussed. Patient discharged to [facility]. Departure - Departure Time of Disposition: 06:34 Disposition: Home, Self-Care 01 Condition: Good Clinical Impression: Leakage from urinary catheter Qualifiers: Encounter type: initial encounter Qualified Code(s): T83.038A - Leakage of other urinary catheter, initial encounter Brunner catheter problem Qualifiers: Encounter type: initial encounter Qualified Code(s): T83.9XXA - Unspecified complication of genitourinary prosthetic device, implant and graft, initial encounter - Discharge Information *PRESCRIPTION DRUG MONITORING PROGRAM REVIEWED*: Not Applicable *COPY OF PRESCRIPTION DRUG MONITORING REPORT IN PATIENT TSERING: Not Applicable Instructions: Indwelling Urinary Catheter Care, Adult Forms: ED Department Discharge Additional Instructions: 1.) Continue with regular Brunner catheter cares
== END 2020-12-09 06:54 | disposition home or self-care (01) ==
LOC: DL.ED 05:36
DX: T83.038A Leakage of other urinary catheter, initial encounter (principal); E78.00 Pure hypercholesterolemia, unspecified; I10 Essential (primary) hypertension; I25.2 Old myocardial infarction; J44.9 Chronic obstructive pulmonary disease, unspecified; K21.9 Gastro-esophageal reflux disease without esophagitis; E11.9 Type 2 diabetes mellitus without complications; Z86.73 Personal history of transient ischemic attack (TIA), and cerebral infarction without residual deficits; Z91.09 Other allergy status, other than to drugs and biological substances; Z79.02 Long term (current) use of antithrombotics/antiplatelets; Z79.82 Long term (current) use of aspirin; Z79.899 Other long term (current) drug therapy
CPT/HCPCS: 51702; 99284-25

== ENCOUNTER 2020-12-19 16:26 | Emergency (ER) | payer MEDICARE, OTHER ==
--- NOTE | 2020-12-19 17:09 | EDM.PDOC ---
Scribed by Kate Fuchs 12/19/20 [id number] for Alphonse Murillo MD ED HPI GENERAL MEDICAL PROBLEM - General Chief Complaint: Genitourinary Problem Stated Complaint: MATHEWS CATH. LEAKING, [facility] STAFF CAN'T GET IT OUT Time Seen by Provider: 12/19/20 17:00 Source of Information: Reports: Patient, RN, RN Notes Reviewed History Limitations: Reports: No Limitations - History of Present Illness INITIAL COMMENTS - FREE TEXT/NARRATIVE: Pt sent [place] with an obstructed Mathews catheter. Reportedly the [facility] staff could not remove that obstructed catheter. Pt denies pain, fever, or any concerns. He has been leaking urine around the catheter. Onset: Unknown/Unsure Duration: Constant Quality: Reports: Other (Denies pain) Severity: Moderate Improves with: Reports: None Worsens with: Reports: None Associated Symptoms: Reports: No Other Symptoms - Related Data Allergies Allergy/AdvReac Type Severity Reaction Status Date / Time No Known Allergies Allergy Verified 11/03/20 16:20 Home Meds: Home Meds Omeprazole 40 mg PO ACBREAKFAST 04/04/20 [History] Albuterol Sulfate [Albuterol Sulfate HFA] 2 puff INH Q6H PRN 07/30/20 [History] Aspirin [Aspirin EC] 81 mg PO DAILY 07/30/20 [History] Budesonide/Formoterol Fumarate [Symbicort 160-4.5 Mcg Inhaler] 2 puff INH BID 07/30/20 [History] Bumetanide 1 mg PO .EVERY07/30/20 [History] Labetalol HCl [Labetalol] 100 mg PO BID 07/30/20 [History] Ascorbic Acid [Vitamin C] 250 mg PO TID 11/03/20 [History] Lactulose 15 ml PO BID 11/03/20 [History] Multivitamin 1 tab PO DAILY 11/03/20 [History] Ticagrelor [Brilinta] 90 mg PO BID 11/03/20 [History] Tiotropium [Spiriva HandiHaler] 18 mcg INH DAILY 11/03/20 [History] amLODIPine Besylate [Amlodipine Besylate] 10 mg PO DAILY 11/03/20 [History] Acetaminophen with Codeine [Acetaminophen-Cod #3] 1 tab PO Q4H PRN 11/08/20 [History] atorvaSTATin Calcium [Atorvastatin Calcium] 80 mg PO BEDTIME 11/08/20 [History] Ciprofloxacin HCl [Cipro] 250 mg PO BID #10 tablet 11/09/20 [Rx] Lidocaine 5% [Lidoderm 5%] 700 mg TOP DAILY #12 patch 11/09/20 [Rx] Past Medical History HEENT History: Reports: Cataract Cardiovascular History: Reports: High Cholesterol, Hypertension, [place], SOB on Exertion Respiratory History: Reports: COPD, SOB Gastrointestinal History: Reports: GERD Genitourinary History: Reports: BPH, UTI, Recurrent Musculoskeletal History: Reports: None Neurological History: Reports: Brain Injury, CVA Psychiatric History: Reports: None Endocrine/Metabolic History: Reports: Diabetes, Type II, Other (See Below) Other Endocrine/Metabolic History: Diet controlled diabetes Hematologic History: Reports: None Immunologic History: Reports: None Oncologic (Cancer) History: Reports: Prostate Dermatologic History: Reports: None - Infectious Disease History Infectious Disease History: Reports: Chicken Pox, Measles, Mumps - Past Surgical History HEENT Surgical History: Reports: Cataract Surgery, Tonsillectomy Cardiovascular Surgical History: Reports: Carotid Endarterectomy GI Surgical History: Reports: None Male Surgical History: Reports: Other (See Below) Other Male Surgeries/Procedures: Urethra dilation Endocrine Surgical History: Reports: None Neurological Surgical History: Reports: None Oncologic Surgical History: Reports: None Social & Family History - Family History Family Medical History: No Pertinent Family History - Caffeine Use Caffeine Use: Reports: Coffee - Living Situation & Occupation Living situation: Reports: Extended Care Facility Occupation: Retired ED ROS GENERAL - Review of Systems Review Of Systems: Comprehensive ROS is negative, except as noted in HPI. ED EXAM, RENAL/ - Physical Exam Exam: See Below Exam Limited By: No Limitations General Appearance: Alert, No Apparent Distress Throat/Mouth: Normal Voice Respiratory/Chest: No Respiratory Distress GI/Abdominal: Soft, Non-Tender (Male) Exam: Other (Indwelling Mathews catheter, leaking urine around.) Neurological: Alert, Other (No acute motor deficits) Psychiatric: Normal Mood Skin Exam: Warm, Dry, Intact, Normal Color Course - Re-Assessments/Exams Free Text/Narrative Re-Assessment/Exam: 12/19/20 Mathews catheter removed and replaced by RN without complication. New catheter is draining clear urine. Departure - Departure Time of Disposition: 17:00 Disposition: Home, Self-Care 01 Condition: Good Clinical Impression: Obstruction of Mathews catheter Qualifiers: Encounter type: initial encounter Qualified Code(s): T83.091A - Other mechanical complication of indwelling urethral catheter, initial encounter - Discharge Information *PRESCRIPTION DRUG MONITORING PROGRAM REVIEWED*: Not Applicable *COPY OF PRESCRIPTION DRUG MONITORING REPORT IN PATIENT TSERING: Not Applicable Instructions: Indwelling Urinary Catheter Care, Adult, [id number] Forms: ED Department Discharge Additional Instructions: Continue with existing half-way orders. I have read and agree with the documentation that has been completed regarding this visit. By signing this record, I attest that the documentation was completed in my physical presence and is an accurate record of the encounter.
== END 2020-12-19 17:55 | disposition home or self-care (01) ==
LOC: DL.ED 16:26
DX: T83.091A Other mechanical complication of indwelling urethral catheter, initial encounter (principal); E78.00 Pure hypercholesterolemia, unspecified; I10 Essential (primary) hypertension; I25.2 Old myocardial infarction; J44.9 Chronic obstructive pulmonary disease, unspecified; K21.9 Gastro-esophageal reflux disease without esophagitis; E11.9 Type 2 diabetes mellitus without complications; Z86.73 Personal history of transient ischemic attack (TIA), and cerebral infarction without residual deficits; Z79.82 Long term (current) use of aspirin; Z79.899 Other long term (current) drug therapy
CPT/HCPCS: 51702; 99283-25

== ENCOUNTER 2021-01-03 00:20 | Emergency (ER) | payer MEDICARE, OTHER ==
--- NOTE | 2021-01-03 00:28 | EDM.PDOC ---
ED HPI GENERAL MEDICAL PROBLEM - General Stated Complaint: AMBULANCE Time Seen by Provider: 01/03/21 00:25 Source of Information: Reports: Patient History Limitations: Reports: No Limitations - History of Present Illness INITIAL COMMENTS - FREE TEXT/NARRATIVE: ED via EMS, catheter leaking all day. No fever chills or pain. - Related Data Allergies Allergy/AdvReac Type Severity Reaction Status Date / Time No Known Allergies Allergy Verified 11/03/20 16:20 Home Meds: Home Meds Omeprazole 40 mg PO ACBREAKFAST 04/04/20 [History] Albuterol Sulfate [Albuterol Sulfate HFA] 2 puff INH Q6H PRN 07/30/20 [History] Aspirin [Aspirin EC] 81 mg PO DAILY 07/30/20 [History] Budesonide/Formoterol Fumarate [Symbicort 160-4.5 Mcg Inhaler] 2 puff INH BID 07/30/20 [History] Bumetanide 1 mg PO .EVERYDAY 07/30/20 [History] Labetalol HCl [Labetalol] 100 mg PO BID 07/30/20 [History] Ascorbic Acid [Vitamin C] 250 mg PO TID 11/03/20 [History] Lactulose 15 ml PO BID 11/03/20 [History] Multivitamin 1 tab PO DAILY 11/03/20 [History] Ticagrelor [Brilinta] 90 mg PO BID 11/03/20 [History] Tiotropium [Spiriva HandiHaler] 18 mcg INH DAILY 11/03/20 [History] amLODIPine Besylate [Amlodipine Besylate] 10 mg PO DAILY 11/03/20 [History] Acetaminophen with Codeine [Acetaminophen-Cod #3] 1 tab PO Q4H PRN 11/08/20 [History] atorvaSTATin Calcium [Atorvastatin Calcium] 80 mg PO BEDTIME 11/08/20 [History] Ciprofloxacin HCl [Cipro] 250 mg PO BID #10 tablet 11/09/20 [Rx] Lidocaine 5% [Lidoderm 5%] 700 mg TOP DAILY #12 patch 11/09/20 [Rx] Past Medical History HEENT History: Reports: Cataract Cardiovascular History: Reports: High Cholesterol, Hypertension, CT, SOB on Exertion Respiratory History: Reports: COPD, SOB Gastrointestinal History: Reports: GERD Genitourinary History: Reports: BPH, UTI, Recurrent Musculoskeletal History: Reports: None Neurological History: Reports: Brain Injury, CVA Psychiatric History: Reports: None Endocrine/Metabolic History: Reports: Diabetes, Type II, Other (See Below) Other Endocrine/Metabolic History: Diet controlled diabetes Hematologic History: Reports: None Immunologic History: Reports: None Oncologic (Cancer) History: Reports: Prostate Dermatologic History: Reports: None - Infectious Disease History Infectious Disease History: Reports: Chicken Pox, Measles, Mumps - Past Surgical History HEENT Surgical History: Reports: Cataract Surgery, Tonsillectomy Cardiovascular Surgical History: Reports: Carotid Endarterectomy GI Surgical History: Reports: None Male Surgical History: Reports: Other (See Below) Other Male Surgeries/Procedures: Urethra dilation Endocrine Surgical History: Reports: None Neurological Surgical History: Reports: None Oncologic Surgical History: Reports: None Social & Family History - Family History Family Medical History: No Pertinent Family History - Caffeine Use Caffeine Use: Reports: Coffee - Living Situation & Occupation Living situation: Reports: Extended Care Facility Occupation: Retired ED ROS GENERAL - Review of Systems Review Of Systems: Comprehensive ROS is negative, except as noted in HPI. ED EXAM, GENERAL - Physical Exam Exam: See Below Exam Limited By: No Limitations General Appearance: Alert, Anxious Eye Exam: Bilateral Eye: EOMI Ears: Normal External Exam, Hearing Loss Nose: Normal Inspection Throat/Mouth: Normal Inspection Head: Atraumatic, Normocephalic Neck: Normal Inspection Respiratory/Chest: No Respiratory Distress, Lungs Clear Cardiovascular: Normal Peripheral Pulses, Regular Rate, Rhythm GI/Abdominal: Normal Bowel Sounds, Soft Back Exam: Normal Inspection Extremities: Normal Inspection Neurological: Alert, Oriented, Normal Cognition Psychiatric: Normal Affect, Normal Mood Skin Exam: Warm, Dry, Intact Course - Vital Signs Last Recorded V/S: Last Vital Signs Temp 98.2 F 01/03/21 00:20 Pulse 103 H 01/03/21 00:20 Resp 18 01/03/21 00:20 BP 135/72 01/03/21 00:20 Pulse Ox 93 L 01/03/21 00:20 - Orders/Labs/Meds Labs: Laboratory Tests 01/03/21 Range/Units 00:50 Urine Color Yellow (YELLOW) Urine Appearance Turbid (CLEAR) Urine pH 7.0 (5.0-9.0) Ur Specific [place] 1.025 (1.005-1.030) Urine Protein 30 H (NEGATIVE) Urine Glucose (UA) 500 H (NEGATIVE) Urine Ketones Negative (NEGATIVE) Urine Occult Blood Moderate H (NEGATIVE) Urine Nitrite Negative (NEGATIVE) Urine Bilirubin Negative (NEGATIVE) Urine Urobilinogen 0.2 (0.2-1.0) mg/dL Ur Leukocyte Esterase Large H (NEGATIVE) Urine RBC 50-75 H (0-5) /HPF Urine WBC Packed H (0-5/HPF) /HPF Ur Epithelial Cells Few (NOT SEEN) /HPF Amorphous Sediment Moderate (NOT SEEN) /HPF Urine Bacteria Few (0-FEW/HPF) /HPF Urine Mucus Few H (NOT SEEN) /LPF Departure - Departure Time of Disposition: 00:38 Disposition: DC/Tfer to [facility] Condition: Good Clinical Impression: Leakage from urinary catheter Qualifiers: Encounter type: initial encounter Qualified Code(s): T83.038A - Leakage of other urinary catheter, initial encounter - Discharge Information *PRESCRIPTION DRUG MONITORING PROGRAM REVIEWED*: No *COPY OF PRESCRIPTION DRUG MONITORING REPORT IN PATIENT TSERING: No Instructions: Indwelling Urinary Catheter Care, Adult Referrals: PCP,None [Primary Care Provider] - Forms: ED Department Discharge Additional Instructions: daily warner catheter care per facility protocol folloy up as needed
== END 2021-01-03 01:20 ==
LOC: DL.ED 00:20
DX: T83.038A Leakage of other urinary catheter, initial encounter (principal); E78.00 Pure hypercholesterolemia, unspecified; I10 Essential (primary) hypertension; I25.2 Old myocardial infarction; J44.9 Chronic obstructive pulmonary disease, unspecified; E11.9 Type 2 diabetes mellitus without complications; Z86.73 Personal history of transient ischemic attack (TIA), and cerebral infarction without residual deficits; Z79.02 Long term (current) use of antithrombotics/antiplatelets; Z79.899 Other long term (current) drug therapy; Z79.82 Long term (current) use of aspirin
CPT/HCPCS: 51702; 81001; 87086; 87088; 87186; 99283-25

== ENCOUNTER 2021-02-11 21:25 | Emergency (ER) | payer MEDICARE, OTHER ==
[2021-02-11] MEDS ORDERED: Lidocaine 2% Jelly 10 ML Urojet MUCMEM ONE (21:47)
--- NOTE | 2021-02-11 22:23 | EDM.PDOC ---
ED HPI GENERAL MEDICAL PROBLEM - General Chief Complaint: Genitourinary Problem Stated Complaint: CATHADER NEEDS CHECKING Time Seen by Provider: 02/11/21 21:55 Source of Information: Reports: Patient History Limitations: Reports: No Limitations - History of Present Illness INITIAL COMMENTS - FREE TEXT/NARRATIVE: ED per w/c from Assisted Living facility. Reports catheter leaking today. Unsure last time catheter was changed. - Related Data Allergies Allergy/AdvReac Type Severity Reaction Status Date / Time No Known Allergies Allergy Verified 02/11/21 21:41 Home Meds: Home Meds Omeprazole 40 mg PO ACBREAKFAST 04/04/20 [History] Albuterol Sulfate [Albuterol Sulfate HFA] 2 puff INH Q6H PRN 07/30/20 [History] Aspirin [Aspirin EC] 81 mg PO DAILY 07/30/20 [History] Budesonide/Formoterol Fumarate [Symbicort 160-4.5 Mcg Inhaler] 2 puff INH BID 07/30/20 [History] Bumetanide 1 mg PO .EVERYDAY 07/30/20 [History] Labetalol HCl [Labetalol] 100 mg PO BID 07/30/20 [History] Ascorbic Acid [Vitamin C] 250 mg PO TID 11/03/20 [History] Lactulose 15 ml PO BID 11/03/20 [History] Multivitamin 1 tab PO DAILY 11/03/20 [History] Ticagrelor [Brilinta] 90 mg PO BID 11/03/20 [History] Tiotropium [Spiriva HandiHaler] 18 mcg INH DAILY 11/03/20 [History] amLODIPine Besylate [Amlodipine Besylate] 10 mg PO DAILY 11/03/20 [History] Acetaminophen with Codeine [Acetaminophen-Cod #3] 1 tab PO Q4H PRN 11/08/20 [History] atorvaSTATin Calcium [Atorvastatin Calcium] 80 mg PO BEDTIME 11/08/20 [History] Ciprofloxacin HCl [Cipro] 250 mg PO BID #10 tablet 11/09/20 [Rx] Lidocaine 5% [Lidoderm 5%] 700 mg TOP DAILY #12 patch 11/09/20 [Rx] Past Medical History HEENT History: Reports: Cataract Cardiovascular History: Reports: High Cholesterol, Hypertension, [place], SOB on Exertion Respiratory History: Reports: COPD, SOB Gastrointestinal History: Reports: GERD Genitourinary History: Reports: BPH, UTI, Recurrent Musculoskeletal History: Reports: None Neurological History: Reports: Brain Injury, CVA Psychiatric History: Reports: None Endocrine/Metabolic History: Reports: Diabetes, Type II, Other (See Below) Other Endocrine/Metabolic History: Diet controlled diabetes Hematologic History: Reports: None Immunologic History: Reports: None Oncologic (Cancer) History: Reports: Prostate Dermatologic History: Reports: None - Infectious Disease History Infectious Disease History: Reports: Chicken Pox, Measles, Mumps - Past Surgical History HEENT Surgical History: Reports: Cataract Surgery, Tonsillectomy Cardiovascular Surgical History: Reports: Carotid Endarterectomy GI Surgical History: Reports: None Male Surgical History: Reports: Other (See Below) Other Male Surgeries/Procedures: Urethra dilation Endocrine Surgical History: Reports: None Neurological Surgical History: Reports: None Oncologic Surgical History: Reports: None Social & Family History - Family History Family Medical History: No Pertinent Family History - Tobacco Use Tobacco Use Status *Q: Former Tobacco User Used Tobacco, but Quit: Yes Month/Year Tobacco Last Used: 2019 - Caffeine Use Caffeine Use: Reports: None - Recreational Drug Use Recreational Drug Use: No - Living Situation & Occupation Living situation: Reports: Extended Care Facility Occupation: Retired ED ROS GENERAL - Review of Systems Review Of Systems: Comprehensive ROS is negative, except as noted in HPI. ED EXAM, RENAL/ - Physical Exam Exam: See Below Exam Limited By: No Limitations General Appearance: Alert, No Apparent Distress Eye Exam: Bilateral Eye: EOMI Ears: Normal External Exam Nose: Normal Inspection Throat/Mouth: Normal Inspection Head: Atraumatic, Normocephalic Neck: Normal Inspection Respiratory/Chest: No Respiratory Distress, Lungs Clear, Normal Breath Sounds Cardiovascular: Regular Rate, Rhythm (Male) Exam: Other (indwelling warner catheter) Back Exam: Normal Inspection Extremities: No Pedal Edema Neurological: Alert, Other (short term memory impairment) Psychiatric: Normal Affect Skin Exam: Warm, Dry, Intact Course - Vital Signs Last Recorded V/S: Last Vital Signs Temp 99.2 F 02/11/21 21:40 Pulse 98 02/11/21 21:40 Resp 18 02/11/21 21:40 BP 139/65 02/11/21 21:40 Pulse Ox 92 L 02/11/21 21:40 - Orders/Labs/Meds Orders: Active Orders 24 hr Category Date Time Status Insert Warner Catheter [Insert Urinary Catheter] [OM.PC] Care 02/11/21 22:00 Ordered Q24H Urinary Catheter Assessment [RC] ASDIRECTED Care 02/11/21 21:47 Active Meds: Medications Discontinued Medications Generic Name Dose Route Start Last Admin Trade Name Shalini PRN Reason Stop Dose Admin Lidocaine HCl 10 ml 02/11/21 21:47 Lidocaine 2% Jelly 10 Ml Urojet MUCMEM 02/11/21 21:48 ONETIME ONE Departure - Departure Time of Disposition: 22:22 Disposition: Home, Self-Care 01 Condition: Good Clinical Impression: Warner catheter problem Qualifiers: Encounter type: initial encounter Qualified Code(s): T83.9XXA - Unspecified complication of genitourinary prosthetic device, implant and graft, initial encounter - Discharge Information *PRESCRIPTION DRUG MONITORING PROGRAM REVIEWED*: No *COPY OF PRESCRIPTION DRUG MONITORING REPORT IN PATIENT TSERING: No Instructions: Indwelling Urinary Catheter Care, Adult Additional Instructions: Clinic follow up 3-4 weeks to replace catheter Continue current home medications Sepsis Event Note (ED) - Evaluation Sepsis Screening Result: No Definite Risk - Focused Exam Vital Signs: Vital Signs Temp Pulse Resp BP Pulse Ox 02/11/21 21:40 99.2 F 98 18 139/65 92 L - My Orders Last 24 Hours: My Active Orders 02/11/21 21:47 Urinary Catheter Assessment [RC] ASDIRECTED 02/11/21 22:00 Insert Warner Catheter [Insert Urinary Catheter] [OM.PC] Q24H - Assessment/Plan Last 24 Hours: My Active Orders 02/11/21 21:47 Urinary Catheter Assessment [RC] ASDIRECTED 02/11/21 22:00 Insert Warner Catheter [Insert Urinary Catheter] [OM.PC] Q24H
== END 2021-02-11 22:30 | disposition home or self-care (01) ==
LOC: DL.ED 21:25
DX: T83.038A Leakage of other urinary catheter, initial encounter (principal); E78.00 Pure hypercholesterolemia, unspecified; I10 Essential (primary) hypertension; I25.2 Old myocardial infarction; J44.9 Chronic obstructive pulmonary disease, unspecified; K21.9 Gastro-esophageal reflux disease without esophagitis; E11.9 Type 2 diabetes mellitus without complications; Z87.891 Personal history of nicotine dependence; Z79.82 Long term (current) use of aspirin; Z79.899 Other long term (current) drug therapy
CPT/HCPCS: 99283

== ENCOUNTER 2021-03-02 12:50 | Emergency (ER) | payer MEDICARE, OTHER ==
[2021-03-02] MEDS ORDERED: Sodium Chloride 0.9% 10 ML Syringe FLUSH PRN (14:17)
[2021-03-02] MEDS ORDERED: Levofloxacin/Dextrose 5%-Water 750 MG in Premix Bag 1 BAG IV ONE (14:18)
[2021-03-02] MEDS ORDERED: Sodium Chloride 0.9% 1,000 ML IV ONE (14:18)
[2021-03-02 14:53] LABS: ANION GAP 15.9 mEq/L (7-13); CHLORIDE,CL 103 mmol/L (98-107); SODIUM,NA 136 mmol/L (136-145)
--- NOTE | 2021-03-02 16:17 | EDM.PDOC ---
ED HPI GENERAL MEDICAL PROBLEM - General Chief Complaint: Genitourinary Problem Stated Complaint: CATHETER PLUGGED Time Seen by Provider: 03/02/21 14:00 Source of Information: Reports: Patient History Limitations: Reports: No Limitations - History of Present Illness INITIAL COMMENTS - FREE TEXT/NARRATIVE: 80 y/o M c/o catheter prob. Pt states he has not had an urine output since this morning. Hx of prostate prob. Does not know when his catheter was last changed. Denies lala, fver, cough, chills, cp, abd pn, back pn, pelvic pain, ext pain. - Related Data Allergies Allergy/AdvReac Type Severity Reaction Status Date / Time No Known Allergies Allergy Verified 02/11/21 21:41 Home Meds: Home Meds Omeprazole 40 mg PO ACBREAKFAST 04/04/20 [History] Albuterol Sulfate [Albuterol Sulfate HFA] 2 puff INH Q6H PRN 07/30/20 [History] Aspirin [Aspirin EC] 81 mg PO DAILY 07/30/20 [History] Budesonide/Formoterol Fumarate [Symbicort 160-4.5 Mcg Inhaler] 2 puff INH BID 07/30/20 [History] Bumetanide 1 mg PO .EVERYOTHERDAY 07/30/20 [History] Labetalol HCl [Labetalol] 100 mg PO BID 07/30/20 [History] Ascorbic Acid [Vitamin C] 250 mg PO TID 11/03/20 [History] Lactulose 15 ml PO BID 11/03/20 [History] Multivitamin 1 tab PO DAILY 11/03/20 [History] Ticagrelor [Brilinta] 90 mg PO BID 11/03/20 [History] Tiotropium [Spiriva HandiHaler] 18 mcg INH DAILY 11/03/20 [History] amLODIPine Besylate [Amlodipine Besylate] 10 mg PO DAILY 11/03/20 [History] Acetaminophen with Codeine [Acetaminophen-Cod #3] 1 tab PO Q4H PRN 11/08/20 [History] atorvaSTATin Calcium [Atorvastatin Calcium] 80 mg PO BEDTIME 11/08/20 [History] Ciprofloxacin HCl [Cipro] 250 mg PO BID #10 tablet 11/09/20 [Rx] Lidocaine 5% [Lidoderm 5%] 700 mg TOP DAILY #12 patch 11/09/20 [Rx] Past Medical History HEENT History: Reports: Cataract Cardiovascular History: Reports: High Cholesterol, Hypertension, SD, SOB on Exertion Respiratory History: Reports: COPD, SOB Gastrointestinal History: Reports: GERD Genitourinary History: Reports: BPH, UTI, Recurrent Musculoskeletal History: Reports: None Neurological History: Reports: Brain Injury, CVA Psychiatric History: Reports: None Endocrine/Metabolic History: Reports: Diabetes, Type II, Other (See Below) Other Endocrine/Metabolic History: Diet controlled diabetes Hematologic History: Reports: None Immunologic History: Reports: None Oncologic (Cancer) History: Reports: Prostate Dermatologic History: Reports: None - Infectious Disease History Infectious Disease History: Reports: Chicken Pox, Measles, Mumps - Past Surgical History Head Surgeries/Procedures: Reports: None HEENT Surgical History: Reports: Cataract Surgery, Tonsillectomy Cardiovascular Surgical History: Reports: Carotid Endarterectomy GI Surgical History: Reports: None Male Surgical History: Reports: Other (See Below) Other Male Surgeries/Procedures: Urethra dilation Endocrine Surgical History: Reports: None Neurological Surgical History: Reports: None Oncologic Surgical History: Reports: None Social & Family History - Family History Family Medical History: No Pertinent Family History - Tobacco Use Tobacco Use Status *Q: Unknown Ever Used Tobacco - Caffeine Use Caffeine Use: Reports: Coffee - Living Situation & Occupation Living situation: Reports: Extended Care Facility Occupation: Retired ED ROS GENERAL - Review of Systems Review Of Systems: Comprehensive ROS is negative, except as noted in HPI. ED EXAM, GI/ABD - Physical Exam Exam: See Below Exam Limited By: No Limitations General Appearance: Alert Neck: Normal Inspection, Supple, Non-Tender, Full Range of Motion Respiratory/Chest: No Respiratory Distress, Lungs Clear, Normal Breath Sounds, No Accessory Muscle Use, Chest Non-Tender Cardiovascular: Normal Peripheral Pulses, Regular Rate, Rhythm, No Edema, No Gallop, No JVD, No Murmur, No Rub GI/Abdominal Exam: Soft, Non-Tender (Male) Exam: Other (catheter in place appears obstructed with purulent material. small circular ulceration to the L upper glans penis, neg bleeding.) Rectal (Males) Exam: Deferred Back Exam: Normal Inspection, Full Range of Motion Extremities: Normal Inspection, Normal Range of Motion, No Pedal Edema, Normal Capillary Refill Neurological: Alert, Oriented, CN II-XII Intact, Normal Cognition, Normal Gait, Normal Reflexes, No Motor/Sensory Deficits Skin Exam: Warm, Dry, Intact Course - Vital Signs Last Recorded V/S: Last Vital Signs Temp 97.8 F 03/02/21 13:43 Pulse 67 03/02/21 13:43 Resp 16 03/02/21 13:43 BP 143/55 H 03/02/21 13:43 Pulse Ox 99 03/02/21 13:43 - Orders/Labs/Meds Orders: Active Orders 24 hr Category Date Time Status Brunner Catheter Insertion [Insert Urinary Catheter] [OM. Care 03/02/21 15:00 Ordered PC] Q24H CULTURE URINE [RM] Stat Lab 03/02/21 14:24 Results Peripheral IV Insertion Adult [OM.PC] Routine Oth 03/02/21 14:18 Ordered Labs: Laboratory Tests 03/02/21 03/02/21 03/02/21 Range/Units 14:24 14:28 14:28 WBC 11.7 H (5.0-10.0) 10^3/uL RBC 4.16 L (4.6-6.2) 10^6/uL Hgb 12.7 L (14.0-18.0) g/dL Hct 39.9 L (40.0-54.0) % MCV 95.9 D (80-100) fL MCH 30.5 (27.0-34.0) pg MCHC 31.8 L (33.0-35.0) g/dL Plt Count 240 (150-450) 10^3/uL Neut % (Auto) 65.6 (42.2-75.2) % Lymph % (Auto) 18.2 L (20.5-50.1) % Ramsey % (Auto) 12.1 H (2-8) % Eos % (Auto) 3.8 H (1.0-3.0) % Baso % (Auto) 0.3 (0.0-1.0) % Sodium 136 (136-145) mmol/L Potassium 4.9 (3.5-5.1) mmol/L Chloride 103 (98-107) mmol/L Carbon Dioxide 22 (21-32) mmol/L Anion Gap 15.9 H (7-13) mEq/L BUN 42 H (7-18) mg/dL Creatinine 2.31 H (0.70-1.30) mg/dL Est Cr Clr Drug Dosing TNP Estimated GFR (MDRD) 27 BUN/Creatinine Ratio 18.2 (No establ ref range) Glucose 201 H (70-99) mg/dL Lactic Acid (0.4-2.0) mmol/L Calcium 8.9 (8.5-10.1) mg/dL Total Bilirubin 0.4 (0.2-1.0) mg/dL AST 20 (15-37) U/L ALT 30 (16-63) U/L Alkaline Phosphatase 157 H (46-116) U/L Total Protein 7.1 (6.4-8.2) g/dL Albumin 3.2 L (3.4-5.0) g/dL Globulin 3.9 Albumin/Globulin Ratio 0.82 Urine Color Yellow (YELLOW) Urine Appearance Cloudy (CLEAR) Urine pH 7.5 (5.0-9.0) Ur Specific Tripp 1.020 (1.005-1.030) Urine Protein 100 H (NEGATIVE) Urine Glucose (UA) 100 H (NEGATIVE) Urine Ketones Negative (NEGATIVE) Urine Occult Blood Large H (NEGATIVE) Urine Nitrite Negative (NEGATIVE) Urine Bilirubin Negative (NEGATIVE) Urine Urobilinogen 0.2 (0.2-1.0) mg/dL Ur Leukocyte Esterase Large H (NEGATIVE) Urine RBC Semi-packed H (0-5) /HPF Urine WBC Semi-packed H (0-5/HPF) /HPF Ur Epithelial Cells Rare (NOT SEEN) /HPF Urine Bacteria Moderate H (0-FEW/HPF) /HPF 12/18/21 Range/Units 14:28 WBC (5.0-10.0) 10^3/uL RBC (4.6-6.2) 10^6/uL Hgb (14.0-18.0) g/dL Hct (40.0-54.0) % MCV (80-100) fL MCH (27.0-34.0) pg MCHC (33.0-35.0) g/dL Plt Count (150-450) 10^3/uL Neut % (Auto) (42.2-75.2) % Lymph % (Auto) (20.5-50.1) % Ramsey % (Auto) (2-8) % Eos % (Auto) (1.0-3.0) % Baso % (Auto) (0.0-1.0) % Sodium (136-145) mmol/L Potassium (3.5-5.1) mmol/L Chloride (98-107) mmol/L Carbon Dioxide (21-32) mmol/L Anion Gap (7-13) mEq/L BUN (7-18) mg/dL Creatinine (0.70-1.30) mg/dL Est Cr Clr Drug Dosing Estimated GFR (MDRD) BUN/Creatinine Ratio (No establ ref range) Glucose (70-99) mg/dL Lactic Acid 1.7 (0.4-2.0) mmol/L Calcium (8.5-10.1) mg/dL Total Bilirubin (0.2-1.0) mg/dL AST (15-37) U/L ALT (16-63) U/L Alkaline Phosphatase (46-116) U/L Total Protein (6.4-8.2) g/dL Albumin (3.4-5.0) g/dL Globulin Albumin/Globulin Ratio Urine Color (YELLOW) Urine Appearance (CLEAR) Urine pH (5.0-9.0) Ur Specific Tripp (1.005-1.030) Urine Protein (NEGATIVE) Urine Glucose (UA) (NEGATIVE) Urine Ketones (NEGATIVE) Urine Occult Blood (NEGATIVE) Urine Nitrite (NEGATIVE) Urine Bilirubin (NEGATIVE) Urine Urobilinogen (0.2-1.0) mg/dL Ur Leukocyte Esterase (NEGATIVE) Urine RBC (0-5) /HPF Urine WBC (0-5/HPF) /HPF Ur Epithelial Cells (NOT SEEN) /HPF Urine Bacteria (0-FEW/HPF) /HPF Meds: Medications Discontinued Medications Generic Name Dose Route Start Last Admin Trade Name Freq PRN Reason Stop Dose Admin Sodium Chloride 1,000 mls @ 999 mls/hr 03/02/21 14:18 03/02/21 15:03 Normal Saline IV 03/02/21 15:18 999 mls/hr .BOLUS ONE Administration Levofloxacin/Dextrose 750 mg/ 150 mls @ 100 mls/hr 03/02/21 14:18 03/02/21 15:03 Premix IV 03/02/21 15:47 100 mls/hr ONETIME ONE Administration Sodium Chloride 10 ml 03/02/21 14:17 03/02/21 15:09 Sodium Chloride 0.9% 10 Ml Syringe FLUSH 10 ml ASDIRECTED PRN Administration Keep Vein Open - Re-Assessments/Exams Free Text/Narrative Re-Assessment/Exam: 03/02/21 16:26 he pt has a significant bladder infection and was given IV Levaquin. I will discharge him home with an RX for Levaquin for further treatment. Departure - Departure Time of Disposition: 16:27 Disposition: Home, Self-Care 01 Condition: Fair Clinical Impression: UTI, Urinary tract infectious disease - Discharge Information *PRESCRIPTION DRUG MONITORING PROGRAM REVIEWED*: Not Applicable *COPY OF PRESCRIPTION DRUG MONITORING REPORT IN PATIENT TSERING: Not Applicable Instructions: Urinary Tract Infection, Adult Referrals: PCP,None [Primary Care Provider] - Forms: ED Department Discharge Additional Instructions: RX: Levaquin Drink plenty of fluids to maintain hydration. If any new symptoms or concerns develop contact your primary care facility or return to the ER. Follow up with your primary care facility next week regarding your ER visit today. Have your urine rechecked to ensure the antibiotics are treating your infection. Sepsis Event Note (ED) - Evaluation Sepsis Screening Result: No Definite Risk - My Orders Last 24 Hours: My Active Orders 03/02/21 14:18 Peripheral IV Insertion Adult [OM.PC] Routine 03/02/21 14:24 CULTURE URINE [RM] Stat 03/02/21 15:00 Brunner Catheter Insertion [Insert Urinary Catheter] [OM.PC] Q24H - Assessment/Plan Last 24 Hours: My Active Orders 03/02/21 14:18 Peripheral IV Insertion Adult [OM.PC] Routine 03/02/21 14:24 CULTURE URINE [RM] Stat 03/02/21 15:00 Brunner Catheter Insertion [Insert Urinary Catheter] [OM.PC] Q24H
== END 2021-03-02 17:00 | disposition home or self-care (01) ==
LOC: DL.ED 12:50
DX: N39.0 Urinary tract infection, site not specified (principal); E78.00 Pure hypercholesterolemia, unspecified; I10 Essential (primary) hypertension; I25.2 Old myocardial infarction; J44.9 Chronic obstructive pulmonary disease, unspecified; K21.9 Gastro-esophageal reflux disease without esophagitis; N40.0 Benign prostatic hyperplasia without lower urinary tract symptoms; E11.9 Type 2 diabetes mellitus without complications; Z79.82 Long term (current) use of aspirin; Z79.899 Other long term (current) drug therapy
CPT/HCPCS: 36415; 51702; 80053; 81001; 83605; 85025; 87086; 87088; 87186; 96365; 96366; 99283; J1956; J7030

== ENCOUNTER 2021-04-28 19:52 | Inpatient (IN) | payer MEDICARE, OTHER ==
[2021-04-28] MEDS ORDERED: HYDROmorphone 0.5 MG/0.5 ML Syringe IVPUSH ONE ×2 (20:08→21:37)
[2021-04-28] MEDS: Sodium Chloride 0.9% 10 ML Syringe FLUSH PRN (20:27)
[2021-04-28 20:54] LABS: ANION GAP 15.9 mEq/L (7-13)
[2021-04-28] MEDS ORDERED: cefTRIAXone 2 GM in Sodium Chloride 0.9% 100 ML IV ONE (21:09)
[2021-04-28] MEDS ORDERED: Albuterol 6.7 GM Inhaler INH PRN (23:29)
[2021-04-28] MEDS ORDERED: Lactulose Soln 10 GM/15 ML 30 ML UD Cup PO PRN (23:29)
[2021-04-28] MEDS ORDERED: Albuterol/Ipratropium 3.0-0.5 MG/3 ML Neb Soln NEB PRN (23:29)
[2021-04-28] MEDS: oxyCODONE 5 MG Tab PO PRN (23:39)
[2021-04-28] MEDS: Acetaminophen 325 MG Tab PO PRN (23:40)
[2021-04-29] MEDS: oxyCODONE 5 MG Tab PO PRN (05:42)
[2021-04-29] MEDS: Acetaminophen 325 MG Tab PO PRN (05:44)
[2021-04-29] MEDS: Omeprazole 20 MG Cap.CR PO SCH (05:45)
[2021-04-29 05:57] LABS: ANION GAP 11.6 mEq/L (7-13)
[2021-04-29] MEDS: Labetalol 100 MG Tab PO SCH ×2 (08:38→20:55)
[2021-04-29] MEDS: Acetaminophen 325 MG Tab PO SCH ×3 (08:39→20:56)
[2021-04-29] MEDS: Bumetanide 1 MG Tab PO SCH (08:39)
[2021-04-29] MEDS: amLODIPine 5 MG Tab PO SCH (08:39)
[2021-04-29] MEDS: Aspirin 81 MG Tab.EC PO SCH (08:40)
[2021-04-29] MEDS: Formoterol/Mometasone 200-5 MCG 8.8 GM Inhaler IH SCH ×2 (08:40→20:57)
[2021-04-29] MEDS: Lidocaine 5% 700 MG Patch TOP SCH (08:42)
[2021-04-29] MEDS: Azithromycin 500 MG in Sodium Chloride 0.9% 250 ML IV SCH (09:33)
[2021-04-29] MEDS: Sodium Chloride 0.9% 10 ML Syringe FLUSH PRN ×2 (20:37→21:09)
[2021-04-29] MEDS: cefTRIAXone 2 GM in Sodium Chloride 0.9% 100 ML IV SCH (20:37)
[2021-04-29] MEDS: atorvaSTATin 20 MG Tab PO SCH (20:55)
[2021-04-30] MEDS: Omeprazole 20 MG Cap.CR PO SCH (05:50)
[2021-04-30 06:58] LABS: ANION GAP 16.3 mEq/L (7-13)
[2021-04-30] MEDS: Formoterol/Mometasone 200-5 MCG 8.8 GM Inhaler IH SCH ×2 (08:34→20:48)
[2021-04-30] MEDS: Labetalol 100 MG Tab PO SCH ×2 (08:35→20:45)
[2021-04-30] MEDS: Aspirin 81 MG Tab.EC PO SCH (08:35)
[2021-04-30] MEDS: Acetaminophen 325 MG Tab PO SCH ×3 (08:36→20:45)
[2021-04-30] MEDS: amLODIPine 5 MG Tab PO SCH (08:36)
[2021-04-30] MEDS: Lidocaine 5% 700 MG Patch TOP SCH (08:38)
[2021-04-30] MEDS: Azithromycin 500 MG in Sodium Chloride 0.9% 250 ML IV SCH (09:57)
[2021-04-30] MEDS: cefTRIAXone 2 GM in Sodium Chloride 0.9% 100 ML IV SCH (20:43)
[2021-04-30] MEDS: atorvaSTATin 20 MG Tab PO SCH (20:45)
[2021-05-01] MEDS: Omeprazole 20 MG Cap.CR PO SCH (05:59)
[2021-05-01 07:14] LABS: ANION GAP 16.9 mEq/L (7-13)
[2021-05-01] MEDS: Azithromycin 500 MG in Sodium Chloride 0.9% 250 ML IV SCH (08:56)
[2021-05-01] MEDS: Acetaminophen 325 MG Tab PO SCH ×3 (08:56→20:37)
[2021-05-01] MEDS: amLODIPine 5 MG Tab PO SCH (08:57)
[2021-05-01] MEDS: Aspirin 81 MG Tab.EC PO SCH (08:57)
[2021-05-01] MEDS: Labetalol 100 MG Tab PO SCH ×2 (08:57→20:38)
[2021-05-01] MEDS: Lidocaine 5% 700 MG Patch TOP SCH (08:57)
[2021-05-01] MEDS: Bumetanide 1 MG Tab PO SCH (08:58)
[2021-05-01] MEDS: Formoterol/Mometasone 200-5 MCG 8.8 GM Inhaler IH SCH ×2 (08:58→20:38)
[2021-05-01] MEDS: oxyCODONE 5 MG Tab PO PRN (15:18)
[2021-05-01] MEDS ORDERED: Glucagon,Human Recombinant 1 MG Vial IM PRN (19:28)
[2021-05-01] MEDS ORDERED: Insulin Lispro 100 Units/ML 3 ML Vial SUBCUT PRN (19:28)
[2021-05-01] MEDS ORDERED: 50% Dextrose in Water 50 ML Syringe IVPUSH PRN (19:28)
[2021-05-01] MEDS: cefTRIAXone 2 GM in Sodium Chloride 0.9% 100 ML IV SCH (20:32)
[2021-05-01] MEDS: atorvaSTATin 20 MG Tab PO SCH (20:34)
[2021-05-02] MEDS: Omeprazole 20 MG Cap.CR PO SCH (05:47)
[2021-05-02 06:40] LABS: HEMOGLOBIN A1C 8.3 % (<5.7)
[2021-05-02 06:44] LABS: ANION GAP 14.3 mEq/L (7-13)
[2021-05-02] MEDS ORDERED: Bisacodyl 10 MG Supp RECTAL PRN (07:40)
[2021-05-02] MEDS ORDERED: Magnesium Hydroxide 400 MG/5 ML Susp 30 ML Cup PO PRN (07:40)
[2021-05-02] MEDS ORDERED: Non-Formulary Medication 1 Each (Trospium Chloride [Trospium Chloride] 20 MG Tablet) PO SCH (09:00)
[2021-05-02] MEDS ORDERED: Multivitamin Tab PO SCH (09:00)
[2021-05-02] MEDS: Lidocaine 5% 700 MG Patch TOP SCH (09:43)
[2021-05-02] MEDS: amLODIPine 5 MG Tab PO SCH (09:44)
[2021-05-02] MEDS: Aspirin 81 MG Tab.EC PO SCH (09:47)
[2021-05-02] MEDS: Ascorbic Acid 500 MG Tab PO SCH ×2 (09:47→14:53)
[2021-05-02] MEDS: Acetaminophen 325 MG Tab PO SCH ×2 (09:47→14:52)
[2021-05-02] MEDS: Labetalol 100 MG Tab PO SCH (09:48)
[2021-05-02] MEDS: Azithromycin 500 MG in Sodium Chloride 0.9% 250 ML IV SCH (09:49)
[2021-05-02] MEDS: Sodium Chloride 0.9% 10 ML Syringe FLUSH PRN (09:50)
[2021-05-02] MEDS: Formoterol/Mometasone 200-5 MCG 8.8 GM Inhaler IH SCH (10:02)
[2021-05-02] MEDS: oxyCODONE 5 MG Tab PO PRN (13:00)
[2021-05-02] MEDS ORDERED: Dexamethasone 4 MG/ML SDV IVPUSH ONE (14:43)
[2021-05-02] MEDS ORDERED: HYDROmorphone 1 MG/ML Syringe IVPUSH ONE (15:16)
== END 2021-05-02 15:42 | DRG 552 ==
LOC: DL.ED 19:52 → DL.MS 21:51
PROVIDERS: ADMIT Internal Medicine; ATTEND Internal Medicine
DX: S22.080A Wedge compression fracture of T11-T12 vertebra, initial encounter for closed fracture (principal); S32.010A Wedge compression fracture of first lumbar vertebra, initial encounter for closed fracture; N18.4 Chronic kidney disease, stage 4 (severe); I11.0 Hypertensive heart disease with heart failure; S32.030A Wedge compression fracture of third lumbar vertebra, initial encounter for closed fracture; N39.0 Urinary tract infection, site not specified; J44.9 Chronic obstructive pulmonary disease, unspecified; Z86.73 Personal history of transient ischemic attack (TIA), and cerebral infarction without residual deficits; E11.9 Type 2 diabetes mellitus without complications; Z93.6 Other artificial openings of urinary tract status; I69.398 Other sequelae of cerebral infarction; Z79.51 Long term (current) use of inhaled steroids; C61 Malignant neoplasm of prostate; N40.0 Benign prostatic hyperplasia without lower urinary tract symptoms; Z20.822 Contact with and (suspected) exposure to COVID-19; I12.9 Hypertensive chronic kidney disease with stage 1 through stage 4 chronic kidney disease, or unspecified chronic kidney disease; E78.00 Pure hypercholesterolemia, unspecified; E11.65 Type 2 diabetes mellitus with hyperglycemia; K21.9 Gastro-esophageal reflux disease without esophagitis; B96.4 Proteus (mirabilis) (morganii) as the cause of diseases classified elsewhere; I25.2 Old myocardial infarction; Z79.82 Long term (current) use of aspirin; Z79.899 Other long term (current) drug therapy; Z87.891 Personal history of nicotine dependence
CPT/HCPCS: 36415; 72128; 72131; 80053; 81001; 85025; 87086; 87088; 87186; 93005; J0696; J1170; U0002; 71045; 80048; 82306; 82947; 83036; 83735; 84436; 84443; 85027; 96365; 96375; 97161-GP; 97166-GO; 99284; 99285-25; A9270-GY; J0456; J1100; J7050

== ENCOUNTER 2022-06-21 08:45 | Emergency (ER) | payer MEDICARE, OTHER ==
[2022-06-21] MEDS ORDERED: Sulfamethoxazole/Trimethoprim 800-160 MG Tab PO ONE (09:59)
[2022-06-21] MEDS ORDERED: cefTRIAXone 1 GM, Lidocaine 1% 2.1 ML IM ONE ×2 (10:01)
== END 2022-06-21 10:34 | disposition home or self-care (01) ==
LOC: DL.ED 08:45 → EEVIPCON 08:45 → DL.ED 10:34
DX: T83.511A Infection and inflammatory reaction due to indwelling urethral catheter, initial encounter (principal); N39.0 Urinary tract infection, site not specified; E78.00 Pure hypercholesterolemia, unspecified; I10 Essential (primary) hypertension; I25.2 Old myocardial infarction; K21.9 Gastro-esophageal reflux disease without esophagitis; E11.9 Type 2 diabetes mellitus without complications; J44.9 Chronic obstructive pulmonary disease, unspecified; Z79.82 Long term (current) use of aspirin; Z79.899 Other long term (current) drug therapy
CPT/HCPCS: 51702; 81001; 87086; 87088; 87186; 96372; 99283; A9270-GY; J0696; J3490

== ENCOUNTER 2022-09-28 16:07 | Emergency (ER) | payer MEDICARE, OTHER ==
[2022-09-28 16:49] LABS: APPEARANCE,URINE CLOUDY (CLEAR); BILIRUBIN,URINE NEGATIVE (NEGATIVE); COLOR,URINE YELLOW (YELLOW); GLUCOSE,URINE 100 (NEGATIVE); KETONES,URINE NEGATIVE (NEGATIVE); LEUKOCYTE ESTERASE,URINE LARGE (NEGATIVE); NITRITE,URINE NEGATIVE (NEGATIVE); OCCULT BLOOD,URINE MODERATE (NEGATIVE); PROTEIN,URINE 100 (NEGATIVE); UROBILINOGEN,URINE 0.2 mg/dL (0.2-1.0)
[2022-09-28 16:57] LABS: BACTERIA,URINE MODERATE /HPF (0-FEW/HPF); EPITHELIAL CELLS,URINE FEW /HPF (NOT SEEN); WBC,URINE >100 /HPF (0-5/HPF)
[2022-09-28] MEDS: cefTRIAXone 1 GM, Lidocaine 1% 2.1 ML IM ONE ×2 (17:44)
== END 2022-09-28 17:52 ==
LOC: DL.ED 16:07
DX: T83.511A Infection and inflammatory reaction due to indwelling urethral catheter, initial encounter (principal); N39.0 Urinary tract infection, site not specified; E78.00 Pure hypercholesterolemia, unspecified; I10 Essential (primary) hypertension; I25.2 Old myocardial infarction; K21.9 Gastro-esophageal reflux disease without esophagitis; E11.9 Type 2 diabetes mellitus without complications; N40.0 Benign prostatic hyperplasia without lower urinary tract symptoms; Z86.73 Personal history of transient ischemic attack (TIA), and cerebral infarction without residual deficits; Z79.82 Long term (current) use of aspirin; Z79.899 Other long term (current) drug therapy; Z79.4 Long term (current) use of insulin
CPT/HCPCS: 81001; 87086; 87088; 87186; 96372; 99283; 99284; J0696; J3490

== ENCOUNTER 2023-12-03 14:24 | Emergency (ER) | payer MEDICARE, OTHER ==
[2023-12-03 14:56] LABS: BASOPHILS PERCENT AUTO 0.6 % (0.0-1.0); EOSINOPHILS PERCENT AUTO 4.1 % (1.0-3.0); HEMATOCRIT 37.3 % (40.0-54.0); HEMOGLOBIN 11.5 g/dL (14.0-18.0); LYMPHOCYTES PERCENT AUTO 17.7 % (20.5-50.1); MEAN CORPUSCULAR HEMOGLOBIN 27.7 pg (27.0-34.0); MEAN CORPUSCULAR HGB CONC 30.8 g/dL (33.0-35.0); MEAN CORPUSCULAR VOLUME 89.9 fL (80-100); MONOCYTES PERCENT AUTO 11.2 % (2-8); NEUTROPHILS PERCENT AUTO 66.4 % (42.2-75.2); PLATELET COUNT,PLT 228 10^3/uL (150-450); RED BLOOD CELL COUNT 4.15 10^6/uL (4.6-6.2); WHITE BLOOD CELL COUNT,WBC 9.5 10^3/uL (5.0-10.0)
[2023-12-03 15:11] LABS: PROTHROMBIN TIME 10.7 SEC (9.0-12.0)
[2023-12-03 15:19] LABS: ALBUMIN 3.6 g/dL (3.4-5.0); BILIRUBIN TOTAL 0.4 mg/dL (0.2-1.0); BUN/CREATININE RATIO 17.9 (No establ ref range); CALCIUM 8.9 mg/dL (8.5-10.1); CREATININE 2.46 mg/dL (0.70-1.30); EST CRCL DRUG DOSING (CG) 24.53 mL/min; MAGNESIUM 2.2 mg/dL (1.8-2.4); PROTEIN TOTAL,TP 7.2 g/dL (6.4-8.2)
[2023-12-03] MEDS: Albuterol/Ipratropium 3.0-0.5 MG/3 ML Neb Soln NEB ONE ×2 (15:19→18:40)
[2023-12-03] MEDS: Sodium Chloride 0.9% 500 ML IV ONE (15:49)
[2023-12-03] MEDS: fentaNYL 100 MCG/2 ML SDV IVPUSH ONE ×2 (17:09→18:44)
[2023-12-03] MEDS: Morphine 2 MG/ML SYRINGE IVPUSH ONE (17:55)
[2023-12-03] MEDS: Albuterol/Ipratropium 3.0-0.5 MG/3 ML Neb Soln ONE (18:41)
[2023-12-03] MEDS: Take Home: Acetaminophen/oxyCODONE 325-5 MG, 5 Tab Pack PO ONE (18:52)
[2023-12-03 19:45] LABS: INFLUENZA A NAA NEGATIVE (NEGATIVE); INFLUENZA B NAA NEGATIVE (NEGATIVE)
[2023-12-03 19:47] LABS: CORONAVIRUS COVID-19 NAA NEGATIVE (NEGATIVE)
== END 2023-12-03 19:05 ==
LOC: DL.ED 14:24
DX: S72.001A Fracture of unspecified part of neck of right femur, initial encounter for closed fracture (principal); J44.9 Chronic obstructive pulmonary disease, unspecified; I12.9 Hypertensive chronic kidney disease with stage 1 through stage 4 chronic kidney disease, or unspecified chronic kidney disease; N18.32 Chronic kidney disease, stage 3b; E11.22 Type 2 diabetes mellitus with diabetic chronic kidney disease; K21.9 Gastro-esophageal reflux disease without esophagitis; E78.5 Hyperlipidemia, unspecified; I25.2 Old myocardial infarction; Z86.73 Personal history of transient ischemic attack (TIA), and cerebral infarction without residual deficits; Z79.82 Long term (current) use of aspirin; Z79.899 Other long term (current) drug therapy; Z79.4 Long term (current) use of insulin; W18.30XA Fall on same level, unspecified, initial encounter; Y92.129 Unspecified place in nursing home as the place of occurrence of the external cause
CPT/HCPCS: 0240U; 36415; 70450; 71045; 73700-RT; 80053; 82947; 83735; 84484; 85025; 85610; 93005; 93010; 96361; 96374; 96375; 99285; 99285-25; A9270-GY; J2270; J3010; J7040; J7620-GY

== ENCOUNTER 2023-12-04 09:15 | Inpatient (IN) | payer MEDICARE, OTHER ==
[2023-12-04] MEDS: Naloxone 2 MG/2 ML Syringe IVPUSH PRN (09:17)
[2023-12-04 09:26] LABS: HEMATOCRIT 37.8 % (40.0-54.0); HEMOGLOBIN 11.9 g/dL (14.0-18.0); MEAN CORPUSCULAR HEMOGLOBIN 27.7 pg (27.0-34.0); MEAN CORPUSCULAR HGB CONC 31.5 g/dL (33.0-35.0); MEAN CORPUSCULAR VOLUME 88.1 fL (80-100); PLATELET COUNT,PLT 199 10^3/uL (150-450); RED BLOOD CELL COUNT 4.29 10^6/uL (4.6-6.2); WHITE BLOOD CELL COUNT,WBC 16.7 10^3/uL (5.0-10.0)
[2023-12-04 09:27] LABS: O2 DELIVERY DEVICE NASAL CANNULA
[2023-12-04 09:31] LABS: BASOPHILS PERCENT AUTO 0.4 % (0.0-1.0); EOSINOPHILS PERCENT AUTO 2.2 % (1.0-3.0); LYMPHOCYTES PERCENT AUTO 10.7 % (20.5-50.1); NEUTROPHILS PERCENT AUTO 76.7 % (42.2-75.2)
[2023-12-04 09:32] LABS: BASE EXCESS VENOUS -5.1 mmol/l ((-2)-(+3)); BICARBONATE,VENOUS 19 mmol/l (19-25); PCO2 VENOUS 32 mmHg (41-51); PH,VENOUS 7.39 (7.31-7.41); PO2 VENOUS 41 mmHg (35-42)
[2023-12-04] MEDS: methylPREDNISolone Sodium Succinate 125 MG/2 ML SDV IVPUSH ONE (09:36)
[2023-12-04] MEDS: cefTRIAXone 1 GM Vial IVPUSH ONE (09:39)
[2023-12-04 09:44] LABS: INR 1.1 (0.9-1.2); PROTHROMBIN TIME 11.6 SEC (9.0-12.0)
[2023-12-04 09:50] LABS: B-TYPE NATRIURETIC PEPTIDE,BNP 644 pg/ml (0-100)
[2023-12-04 09:51] LABS: ALBUMIN 3.2 g/dL (3.4-5.0); ANION GAP 15.8 mEq/L (7-13); BILIRUBIN TOTAL 0.7 mg/dL (0.2-1.0); BLOOD UREA NITROGEN,BUN 47 mg/dL (7-18); BUN/CREATININE RATIO 18.7 (No establ ref range); CALCIUM 8.8 mg/dL (8.5-10.1); CARBON DIOXIDE,CO2 21 mmol/L (21-32); CHLORIDE,CL 108 mmol/L (98-107); CREATININE 2.52 mg/dL (0.70-1.30); GLUCOSE RANDOM 154 mg/dL (70-99); POTASSIUM,K 4.8 mmol/L (3.5-5.1); PROTEIN TOTAL,TP 6.8 g/dL (6.4-8.2); SODIUM,NA 140 mmol/L (136-145)
[2023-12-04 09:52] LABS: A/G RATIO 0.89; ALANINE AMINOTRANSFERASE,ALT 20 U/L (16-63); ALKALINE PHOSPHATASE 82 U/L (46-116); ASPARTATE AMNIOTRANSFERASE,AST 16 U/L (15-37); ESTIMATED GFR 24 mL/min (>=60); MAGNESIUM 2.1 mg/dL (1.8-2.4)
[2023-12-04 09:55] LABS: EOSINOPHILS PERCENT MAN 3 % (1-3); LYMPHOCYTES PERCENT MAN 4 % (20-50); MONOCYTES PERCENT MAN 6 % (2-8); SEG NEUTROPHILS PERCENT MAN 87 % (42-75)
[2023-12-04 10:02] LABS: APPEARANCE,URINE CLOUDY (CLEAR); BILIRUBIN,URINE NEGATIVE (NEGATIVE); COLOR,URINE YELLOW (YELLOW); GLUCOSE,URINE NEGATIVE (NEGATIVE); KETONES,URINE NEGATIVE (NEGATIVE); LEUKOCYTE ESTERASE,URINE LARGE (NEGATIVE); NITRITE,URINE POSITIVE (NEGATIVE); OCCULT BLOOD,URINE SMALL (NEGATIVE); PROTEIN,URINE 100 (NEGATIVE); UROBILINOGEN,URINE 0.2 mg/dL (0.2-1.0)
[2023-12-04] MEDS: Azithromycin 500 MG in Sodium Chloride 0.9% 250 ML IV ONE (10:14)
[2023-12-04 10:23] LABS: RBC,URINE 0-5 /HPF (0-5); WBC,URINE 20-30 /HPF (0-5/HPF)
[2023-12-04 10:24] LABS: BACTERIA,URINE MANY /HPF (0-FEW/HPF); EPITHELIAL CELLS,URINE RARE /HPF (NOT SEEN)
[2023-12-04 10:25] LABS: TRIPLE PHOSPHATE CRYSTALS,UR FEW /HPF (NOT SEEN)
[2023-12-04] MEDS: fentaNYL 100 MCG/2 ML SDV IVPUSH ONE (10:39)
[2023-12-04] MEDS: Acetaminophen 650 MG Supp RECTAL STA (10:40)
[2023-12-04] MEDS ORDERED: Acetaminophen/HYDROcodone 325-5 MG Tab PO PRN (11:57)
[2023-12-04] MEDS ORDERED: Acetaminophen 325 MG Tab PO PRN (11:57)
[2023-12-04] MEDS ORDERED: Acetaminophen 650 MG Supp RECTAL PRN (11:57)
[2023-12-04] MEDS ORDERED: Ondansetron 4 MG/2 ML SDV IVPUSH PRN (11:57)
[2023-12-04] MEDS ORDERED: Sodium Chloride 0.9% 10 ML Syringe FLUSH PRN (11:57)
[2023-12-04] MEDS ORDERED: Magnesium Hydroxide 400 MG/5 ML Susp 30 ML Cup PO PRN (11:57)
[2023-12-04] MEDS ORDERED: Melatonin 3 MG Tab PO PRN (11:57)
[2023-12-04] MEDS ORDERED: Albuterol/Ipratropium 3.0-0.5 MG/3 ML Neb Soln NEB PRN (11:57)
[2023-12-04] MEDS ORDERED: Sennosides/Docusate Sodium 50-8.6 MG Tab PO PRN (11:57)
[2023-12-04] MEDS ORDERED: HYDROmorphone 0.5 MG/0.5 ML Syringe IVPUSH PRN (11:57)
[2023-12-04] MEDS ORDERED: Polyethylene Glycol 3350 Powder 17 GM Packet PO PRN (11:57)
[2023-12-04] MEDS ORDERED: hydrALAZINE 20 MG/ML SDV IVPUSH PRN (12:07)
[2023-12-04] MEDS ORDERED: Metoprolol Tartrate 5 MG/5 ML SDV IVPUSH PRN (12:07)
[2023-12-04] MEDS ORDERED: 50% Dextrose in Water 50 ML Syringe IVPUSH PRN (12:09)
[2023-12-04] MEDS ORDERED: Glucagon,Human Recombinant 1 MG Vial IM PRN (12:09)
[2023-12-04] MEDS ORDERED: Morphine 4 MG/ML Syringe IVPUSH PRN ×2 (13:03→13:06)
[2023-12-04] MEDS ORDERED: LORazepam 2 MG/ML SDV IVPUSH PRN (13:04)
[2023-12-04] MEDS ORDERED: Atropine 1% Ophth Soln 5 ML Bottle SL PRN (13:05)
[2023-12-04] MEDS: Lidocaine 5% 700 MG Patch TOP ONE (13:46)
[2023-12-04] MEDS: Scopalamine 1mg/3day Transdermal Patch TOP ONE (13:50)
[2023-12-04] MEDS: fentaNYL 50 MCG/HR Transdermal Patch TRDERM ONE (13:51)
[2023-12-04] MEDS: Albuterol/Ipratropium 3.0-0.5 MG/3 ML Neb Soln NEB ONE (13:55)
[2023-12-04] MEDS: methylPREDNISolone Sod Succ 125 MG in Sodium Chloride 0.9% 100 ML IV ONE (13:56)
[2023-12-04] MEDS: LORazepam 2 MG/ML SDV IVPUSH PRN (16:49)
[2023-12-04] MEDS: Morphine 10 MG/ML Syringe IVPUSH PRN (16:49)
[2023-12-04] MEDS ORDERED: Insulin Lispro 100 Units/ML 3 ML Vial SUBCUT SCH (17:00)
[2023-12-04] MEDS: Atropine 1% Ophth Soln 5 ML Bottle SL PRN (17:13)
[2023-12-04] MEDS: Check Patch TRDERM SCH ×2 (20:00)
[2023-12-04] MEDS ORDERED: Docusate Sodium 100 MG Cap PO SCH (21:00)
[2023-12-04] MEDS ORDERED: Saccharomyces Boulardii (Probiotic) 250 MG Cap PO SCH (21:00)
[2023-12-04] MEDS: Sodium Chloride 0.9% 10 ML Syringe FLUSH SCH (23:06)
[2023-12-05] MEDS: LORazepam 2 MG/ML SDV IVPUSH PRN (00:45)
[2023-12-05] MEDS ORDERED: cefTRIAXone 1 GM Vial IVPUSH SCH (09:00)
[2023-12-05] MEDS ORDERED: Lidocaine 5% 700 MG Patch TOP SCH (09:00)
[2023-12-05] MEDS ORDERED: Azithromycin 500 MG in Sodium Chloride 0.9% 250 ML IV SCH (09:00)
[2023-12-05] MEDS: LORazepam 2 MG/ML SDV PRN (13:19)
[2023-12-05] MEDS: Morphine 10 MG/0.5 ML Oral Syringe SL PRN ×3 (13:20→22:38)
[2023-12-05] MEDS: LORazepam 1 MG Tab PO ONE (18:39)
[2023-12-05] MEDS ORDERED: LORazepam 1 MG Tab PO PRN (19:58)
[2023-12-05] MEDS: LORazepam 1 MG Tab PO PRN (22:38)
[2023-12-06] MEDS ORDERED: Morphine PF 10 MG/10 ML SDV IV SCH (19:45)
[2023-12-06] MEDS ORDERED: Morphine PF 30 MG/30 ML PCA Vial IV SCH (20:00)
[2023-12-06] MEDS: LORazepam 2 MG/ML SDV IVPUSH PRN (21:08)
[2023-12-06] MEDS: SODIUM CHLORIDE 0.9% IV SCH (21:09)
[2023-12-06] MEDS: MORPHINE IV SCH (21:09)
== END 2023-12-07 04:25 | disposition expired | DRG 177 ==
LOC: DL.ED 09:15 → UNDOADMIN 11:04 → DL.MS 11:04 → UNDOADMIN 13:09 → UNDODISIN 12-07 04:25
PROVIDERS: ADMIT Internal Medicine; ATTEND Internal Medicine
DX: J69.0 Pneumonitis due to inhalation of food and vomit (principal); G93.41 Metabolic encephalopathy; J96.01 Acute respiratory failure with hypoxia; S72.001A Fracture of unspecified part of neck of right femur, initial encounter for closed fracture; J44.1 Chronic obstructive pulmonary disease with (acute) exacerbation; N18.32 Chronic kidney disease, stage 3b; I24.9 Acute ischemic heart disease, unspecified; N18.4 Chronic kidney disease, stage 4 (severe); E78.00 Pure hypercholesterolemia, unspecified; J44.9 Chronic obstructive pulmonary disease, unspecified; E11.21 Type 2 diabetes mellitus with diabetic nephropathy; N17.9 Acute kidney failure, unspecified; J90 Pleural effusion, not elsewhere classified; J44.0 Chronic obstructive pulmonary disease with (acute) lower respiratory infection; N39.0 Urinary tract infection, site not specified; Z66 Do not resuscitate; Z51.5 Encounter for palliative care; I12.9 Hypertensive chronic kidney disease with stage 1 through stage 4 chronic kidney disease, or unspecified chronic kidney disease; E87.8 Other disorders of electrolyte and fluid balance, not elsewhere classified; N40.0 Benign prostatic hyperplasia without lower urinary tract symptoms; E11.22 Type 2 diabetes mellitus with diabetic chronic kidney disease; K44.9 Diaphragmatic hernia without obstruction or gangrene; K21.9 Gastro-esophageal reflux disease without esophagitis; E11.42 Type 2 diabetes mellitus with diabetic polyneuropathy; R26.9 Unspecified abnormalities of gait and mobility; E11.65 Type 2 diabetes mellitus with hyperglycemia; M19.90 Unspecified osteoarthritis, unspecified site; D50.9 Iron deficiency anemia, unspecified; E78.5 Hyperlipidemia, unspecified; I25.2 Old myocardial infarction; K59.09 Other constipation; N32.81 Overactive bladder; G89.29 Other chronic pain; M54.9 Dorsalgia, unspecified; D63.1 Anemia in chronic kidney disease; Z86.73 Personal history of transient ischemic attack (TIA), and cerebral infarction without residual deficits; Z85.46 Personal history of malignant neoplasm of prostate; Z87.81 Personal history of (healed) traumatic fracture; Z79.52 Long term (current) use of systemic steroids; Z87.440 Personal history of urinary (tract) infections; Z98.49 Cataract extraction status, unspecified eye; Z87.891 Personal history of nicotine dependence; Z79.899 Other long term (current) drug therapy; Z98.890 Other specified postprocedural states; Z90.89 Acquired absence of other organs; Z79.82 Long term (current) use of aspirin; Z79.4 Long term (current) use of insulin; Z91.81 History of falling; Z79.51 Long term (current) use of inhaled steroids; W18.30XA Fall on same level, unspecified, initial encounter
CPT/HCPCS: 36415; 71250; 80053; 81001; 82550; 82803; 82947 ×2; 83735; 83880; 84484 ×2; 85025; 85610; 86140; 93005; 96365; 96375; 99285; A9270; J0456; J0696; J2310; J2919; J3010; J7050; 93010; 99223; 99233; 99238; J2060; J2270; J3490